=== PATIENT | female | born 1955 | race Caucasian/White ===

== ENCOUNTER → 2019-03-21 | Outpatient (CLI) | payer BC ==
--- NOTE | 2019-03-21 09:45 | Diagnostic Imaging Report ---
EXAMINATION: Lumbar spine at 9:30 a.m. INDICATION: Back pain. AP, lateral and spot lateral views were obtained. There are no prior studies available for comparison. The lateral view does show a grade I spondylolisthesis of L4 with respect to L5. There is also mild narrowing of the disc space at this level. The alignment of the other vertebral bodies is within normal limits and the other intervertebral disc spaces are fairly well maintained. There is no fracture or acute bony abnormality evident. There is no sign of a paraspinal mass. There is mild symmetrical sclerosis of the sacroiliac joints. IMPRESSION: 1. There is no evidence for an acute bony abnormality. 2. There is a grade I spondylolisthesis of L4 with respect to L5 and there is mild narrowing of the disc space at the L4-L5 level. If there is clinical concern regarding spinal stenosis or nerve root encroachment at this level, then MRI would be recommended for further study. Dictated by: Dictated on workstation # [id number]
== END ==
LOC: RAD FS 09:24
PROVIDERS: ATTEND Nurse Practitioner Family
DX: M43.16 Spondylolisthesis, lumbar region (principal); M48.061 Spinal stenosis, lumbar region without neurogenic claudication
CPT/HCPCS: 72100

== ENCOUNTER → 2019-06-24 | Outpatient (CLI) | payer BC ==
--- NOTE | 2019-06-24 11:09 | Diagnostic Imaging Report ---
PROCEDURE: US Bilateral lower extremity arterial. TECHNIQUE: Multiple real-time grayscale images are obtained through both lower extremity arterial systems with color Doppler imaging and color Doppler spectral analysis. INDICATION: Claudication. FINDINGS: There is complete occlusion of the superficial femoral arteries bilaterally. There is reconstitution of the popliteal arteries via collateral. Both posterior tibials appear to be patent at the ankle. The right dorsalis pedis is not visualized. IMPRESSION: Complete occlusion of both superficial femoral arteries with monophasic flow seen distally following reconstitution via collaterals. Additionally there is small vessel disease. Recommend clinical correlation and if warranted follow-up with formal angiography. Dictated by: Dictated on workstation # [id number]
== END ==
LOC: RAD 09:01
PROVIDERS: ATTEND Physician Assistant
DX: I70.203 Unspecified atherosclerosis of native arteries of extremities, bilateral legs (principal)
CPT/HCPCS: 93925

== ENCOUNTER → 2019-07-11 | Outpatient (CLI) | payer BC | LOC: CARD 10:31 | PROVIDERS: ATTEND Internal Medicine Cardiovascular Disease | DX: I73.9 Peripheral vascular disease, unspecified (principal); E78.2 Mixed hyperlipidemia; I10 Essential (primary) hypertension; I25.10 Atherosclerotic heart disease of native coronary artery without angina pectoris; Z72.0 Tobacco use | CPT/HCPCS: 93306 ==

== ENCOUNTER → 2019-07-14 | Outpatient (CLI) | payer BC ==
[~2019-07-14] VITALS: Ht 160 cm; Wt 67.0 kg
[~2019-07-14] MED LIST: ACLI400A3 IH; AMLO5TAB4 PO; ASPI-999 PO; CATHETER FLUSH 10 ML SYR IV PRN; CLON0.1T PO; CLOP75TA69 PO; LOSA1TAB26 PO; MULT-974 PO; NIAC500T24 PO; NICO-587 TD; OMG1KC PO; REGADENOSON 0.4 MG/5 ML SYR (LEXISCAN) IV ONE; RT-ALBUINH IH
--- NOTE | 2019-07-14 11:55 | STRESS TEST ---
DATE OF SERVICE: 07/14/2019 LEXISCAN MYOVIEW STRESS TEST REPORT REFERRING PHYSICIAN: Dr. Paredes Baseline heart rate is 72. Baseline blood pressure 181/82. Baseline EKG is sinus rhythm with no ischemic changes. In summary, the patient received 10.77 mCi of technetium-99 Myoview and the resting images were obtained. Then, the patient received 0.4 mg of Lexiscan followed by 29.8 mCi of technetium-99 Myoview. Throughout the test, there were no EKG changes. The resting and stress images were reviewed and compared in the short axis, horizontal long axis, and vertical long axis views. Review of the images showed good radiotracer uptake with no significant ischemia or infarction. SSS is 0. TID value is 1.11. On the gated images, the left ventricle appeared to be in normal size with normal contractility. Calculated ejection fraction is 81%. CONCLUSION: 1. The patient tolerated the Lexiscan well. 2. No ischemia or infarction on SPECT images. 3. Normal left ventricular size with normal contractility. Calculated ejection fraction is 81%. Job ID: [id number] DocumentID: [id number] Dictated Date: 07/14/2019 11:17:30 Furniture Restorer Date: 07/14/2019 11:55:12 Dictated By: YARA GREENWOOD MD
== END ==
LOC: CARD 06:37
PROVIDERS: ATTEND Internal Medicine Cardiovascular Disease
DX: I73.9 Peripheral vascular disease, unspecified (principal); E78.2 Mixed hyperlipidemia; I10 Essential (primary) hypertension; I25.119 Atherosclerotic heart disease of native coronary artery with unspecified angina pectoris; Z72.0 Tobacco use
CPT/HCPCS: 78452; 93017

== ENCOUNTER 2019-07-16 11:54 | Day surgery (SDC) | payer BC ==
[2019-07-16] VITALS (8 sets, daily range): BP systolic 101–207; BP diastolic 55–90
[~2019-07-16] VITALS: Ht 160 cm; Wt 60.7 kg
[2019-07-16] MEDS ORDERED: LIDOCAINE 1% INJ 20 ML 20 ML VIAL ONE ×2 (11:59→15:19)
[2019-07-16] MEDS ORDERED: NS IV 1000 ML 1,000 ML ONE (11:59)
[2019-07-16] MEDS ORDERED: HEParin (CATH LAB) 2,000 ML IV ONE (11:59)
--- NOTE | 2019-07-16 12:34 | Diagnostic Imaging Report ---
CHEST 1 VIEW, AP/PA ONLY Indication: Preop assessment for peripheral angiography. Comparison: None available. Findings: Calcified pulmonary granuloma within the left mid to lower lung zone. No focal airspace disease in the visualized lungs. Please note that the posterior lower lobes are poorly evaluated by portable radiography. No pleural effusion or pneumothorax. Normal cardiomediastinal silhouette. Impression: 1. No acute cardiopulmonary process by portable radiography. Dictated by: Dictated on workstation # [id number]
[2019-07-16 12:35] LABS: HEMOGLOBIN 15.2 G/DL (11.5-16.0); MEAN PLATELET VOLUME 9.9 FL (7.4-10.4); RED CELL DISTRIBUTION WIDTH 12.8 % (10.0-14.5); WHITE BLOOD COUNT 8.9 10^3/uL (4.3-11.0)
[2019-07-16] MEDS: NS IV 1000 ML 1,000 ML IV SCH ×3 (12:36→19:26)
[2019-07-16 12:43] LABS: BILIRUBIN,URINE NEGATIVE (NEGATIVE); CLARITY,URINE CLEAR; COLOR,URINE YELLOW; GLUCOSE, URINE (UA) NEGATIVE (NEGATIVE); KETONES,URINE NEGATIVE (NEGATIVE); LEUKOCYTE ESTERASE ,URINE NEGATIVE (NEGATIVE); NITRITE,URINE NEGATIVE (NEGATIVE); PH,URINE 6.5 (5-9); PROTEIN,URINE NEGATIVE (NEGATIVE)
[2019-07-16 12:47] LABS: INR 0.9 (0.8-1.4); PROTHROMBIN TIME PATIENT 12.3 SEC (12.2-14.7)
[2019-07-16 12:56] LABS: BACTERIA,URINE TRACE /HPF; WBC,URINE 0-2 /HPF
[2019-07-16 12:58] LABS: ALANINE AMINOTRANSFERASE 73 U/L (0-55); ALBUMIN 4.3 GM/DL (3.2-4.5); ALKALINE PHOSPHATASE 111 U/L (40-136); BILIRUBIN,TOTAL 0.6 MG/DL (0.1-1.0); BUN/CREATININE RATIO 14; CALCIUM 9.3 MG/DL (8.5-10.1); CARBON DIOXIDE 28 MMOL/L (21-32); CHLORIDE 95 MMOL/L (98-107); CREATININE SERUM 0.71 MG/DL (0.60-1.30); GFR ESTIMATED > 60; GLUCOSE 103 MG/DL (70-105); POTASSIUM 3.5 MMOL/L (3.6-5.0); SODIUM 131 MMOL/L (135-145); TOTAL PROTEIN 7.7 GM/DL (6.4-8.2); TRIGLYCERIDES 73 MG/DL (<150)
[2019-07-16 12:59] LABS: CHOLESTEROL 192 MG/DL (< 200); HDL CHOLESTEROL 88 MG/DL (40-60); VLDL CHOLESTEROL 15 MG/DL (5-40)
[2019-07-16] MEDS ORDERED: LOSA1TAB26 PO (13:13)
[2019-07-16] MEDS ORDERED: ACLI400A3 IH (13:13)
[2019-07-16] MEDS ORDERED: CLON0.1T PO (13:13)
[2019-07-16] MEDS ORDERED: MULT-974 PO (13:13)
[2019-07-16] MEDS ORDERED: NICO-587 TD (13:13)
[2019-07-16] MEDS ORDERED: CLOP75TA69 PO (13:13)
[2019-07-16] MEDS ORDERED: AMLO5TAB4 PO (13:13)
[2019-07-16] MEDS ORDERED: NIAC500T24 PO (13:13)
[2019-07-16] MEDS ORDERED: OMG1KC PO (13:13)
[2019-07-16] MEDS ORDERED: RT-ALBUINH IH (13:13)
[2019-07-16] MEDS ORDERED: ASPI-999 PO (13:13)
[2019-07-16] MEDS ORDERED: MIDAZOLAM 5 MG/5 ML (VERSED) VIAL ONE ×2 (13:59→15:16)
[2019-07-16] MEDS ORDERED: fentaNYL INJECTION 100 MCG/2 ML AMP ONE ×3 (13:59→18:33)
[2019-07-16] MEDS ORDERED: NITRO DRIP 25000 MCG/D5W 0 ML IV ONE (14:45)
[2019-07-16] MEDS ORDERED: HEParin 1000 UNIT/ML (10ML VIAL) FOR BOLUS ONE (14:45)
--- NOTE | 2019-07-16 15:41 | Cardiac Procedure Note-CS/ASA ---
Pre-Procedure Note Pre-Op Procedure Note H&P Reviewed The H&P was reviewed, patient examined and no changes noted. Date H&P Reviewed: Jul 16, 2019 Time H&P Reviewed: 15:41 Conscious Sedation Pre-Proced Time 15:41 ASA Score 3 For ASA 3 and 4: Consider anesthesia and medical clearance. Also, for patients with a history of failed moderate sedation consider anesthesia. Airway Lungs Heart ASA score ASA 1: a normal healthy patient ASA 2: a patient with a mild systemic disease (mid diabetes, controlled hypertension, obesity x ASA 3: a patient with a severe systemic disease that limits activity (angina, COPD, prior Myocardial infarction) ASA 4: a patient with an incapacitating disease that is a constant threat to life (CHF, renal failure) ASA 5: a moribund patient not expected to survive 24 hrs. (ruptured aneurysm) ASA 6: a declared brain- patient whose organs are being harvested. For emergent operations, add the letter E after the classification Mallampati Classification Grade 3 Sedation Plan Analgesia, Amnesia, Plan communicated to team members, Discussed options with patient/fam, Discussed risks with patient/fam The patient is an appropriate candidate to undergo the planned procedure, sedation, and anesthesia. The patient immediately re-assessed prior to indication. YARA GREENWOOD MD Jul 16, 2019 15:41
[2019-07-16] MEDS ORDERED: PATIENT MAY USE OWN MEDS, ALL PO SCH (15:45)
--- NOTE | 2019-07-16 15:48 | Peripheral Report ---
Peripheral Report Physician (s)/Skid Man (s) Physician YARA GREENWOOD MD Pre-Procedure Diagnosis Pre-Procedure Diagnosis: Claudication, peripheral arterial disease Post-Procedure Note Procedure Start Date: Jul 16, 2019 Name of Procedure: Abdominal aortogram Bilateral runoff Second order Additional imaging Findings/Procedure Note PROCEDURE NOTE: 64-year-old lady with abnormal PAOLA, abnormal ultrasound, claudication, scheduled for peripheral angiogram After explaining the procedure to the patient, all pros and cons were explained, all questions were answered. The patient signed the consent and then she was placed on the cardiac catheterization laboratory. The patient was placed on the cardiac catheterization laboratory. Groin was prepped SL fashion local anesthesia was used. Sheath placed in the right femoral artery, runoff to the right leg was done, then using Tobin catheter I advanced to the left and advanced to straight catheter to the common iliac artery runoff to the left leg was done, patient was given 5000 units of heparin, sheath was exchanged into long 6 Irish sheath, multiple attempts to cross the total occlusion of the SFA has failed. I attempted pedal access with the posterior tibial artery, I was unable to intubate the posterior tibial artery, had a venous access. Sheath was exchanged back into a short 6 Irish sheath, a pigtail catheter advanced to the abdominal aorta and angiogram was done. At the end of the procedure sheath was sutured in place FINDINGS: Abdominal aortogram: Mild other scorer disease, had a consultation of the bifurcation. No aneurysm. Left leg: Total occlusion at the ostium of the left SFA without success and reestablishing flow, reconstruction by collaterals at the popliteal artery. Failed attempt for intervention Right leg: Total occlusion at the ostium of the right SFA, heavy atherosclerotic plaque with reconstruction by collaterals at the popliteal artery CONCLUSIONS: 1. Severe peripheral arterial disease with total occlusion of bilateral SFA at the ostium, getting collaterals filling the popliteal artery 2. Failed attempt for intervention on the left SFA 3. Heavily calcified abdominal aorta and iliac arteries DISCUSSION AND RECOMMENDATIONS: Maximize medical therapy, referral for high risk intervention. Anesthesia Type: Conscious Sedation Estimated blood loss (mL): 35 ml Contrast Amount: 95 ml Total Radiation Dose: 150 mGy Post-Procedure Diagnosis Post-operative diagnosis: Claudication Peripheral arterial disease Hypertension Hyperlipidemia YARA GREENWOOD MD Jul 16, 2019 15:48
[2019-07-16] MEDS ORDERED: NON-FORMULARY MEDICATION 1 EA EA (Niacinamide (Niacin) 500 MG) PO SCH (16:00)
[2019-07-16] MEDS ORDERED: ATROPINE INJECTION 1 MG/10 ML SYR (ABBOTT) ONE (18:30)
[2019-07-16] MEDS: RT-ALBUTEROL SULF 2.5 MG/3 ML PRE-MIX VIAL IH SCH ×2 (19:17→21:41)
[2019-07-16] MEDS: cloNIDine 0.1 MG (CATAPRES) TAB PO SCH (22:10)
[2019-07-17] VITALS: BP 151/67
[2019-07-17] MEDS: NS IV 1000 ML 1,000 ML IV SCH (02:02)
[2019-07-17] MEDS: RT-ALBUTEROL SULF 2.5 MG/3 ML PRE-MIX VIAL IH SCH ×3 (02:31→11:34)
[2019-07-17 03:25] LABS: HEMOGLOBIN 13.1 G/DL (11.5-16.0); MEAN PLATELET VOLUME 10.4 FL (7.4-10.4); RED CELL DISTRIBUTION WIDTH 12.7 % (10.0-14.5); WHITE BLOOD COUNT 8.6 10^3/uL (4.3-11.0)
[2019-07-17 03:47] LABS: BUN/CREATININE RATIO 15; CALCIUM 8.7 MG/DL (8.5-10.1); CARBON DIOXIDE 24 MMOL/L (21-32); CHLORIDE 101 MMOL/L (98-107); CREATININE SERUM 0.65 MG/DL (0.60-1.30); GFR ESTIMATED > 60; GLUCOSE 120 MG/DL (70-105); POTASSIUM 2.9 MMOL/L (3.6-5.0); SODIUM 136 MMOL/L (135-145)
[2019-07-17 04:00] VITALS: BP 139/62
[2019-07-17] MEDS ORDERED: MULTIVIT W/MINERALS TAB (THERAGRAN M) PO SCH (07:00)
[2019-07-17 08:00] VITALS: BP 139/72
[2019-07-17] MEDS ORDERED: KCL 20 MEQ TAB (K-DUR) PO ONE (08:00)
--- NOTE | 2019-07-17 08:15 | Discharge Inst-Post CATH ---
Discharge Inst-CATH/EP Problems Reviewed?: Yes Post Cardiac Cath/EP D/C Inst Follow Up/Plan Appointment with Dr. Hammond's office in 2-4 weeks <b>CARDIAC CATH/EP PROCEDURE DISCHARGE INSTRUCTIONS</b> ACTIVITY * Go Home directly and rest. * Limit activity of the leg (or wrist if it was used) for 7 days including aerobics, swimming, jogging, bicycling, etc. * Restrict stair-climbing for 7 days if possible, if not, climb up with your non-cath leg, then bring together on the same step. * Avoid lifting, pushing, pulling or excessive movement of the affected extremity for 7 days. * Customary sexual activity may be resumed after 2 days-use caution not to use a position that strains or causes pain to the affected extremity. * No driving for 24 hours. * NO SMOKING. * Avoid straining for bowel movements for 7 days. * Gentle walking on level ground is allowed. * Returning to work will depend on the type of procedure and the results. Your doctor will discuss this with you. CALL YOUR DOCTOR FOR ANY OF THE FOLLOWING: *If bleeding from the puncture site occurs- Apply gentle pressure to site with clean cloth and call your doctor or EMS. * If a knot or lump forms under the skin, increases in size, or causes pain. * If bruising appears to be worsening or moving further down your leg instead of disappearing. * Temperature above 101 F. CARE OF YOUR GROIN INCISION; * Bruising or purple discoloration of the skin near the puncture site is common. * You may shower only, no bathtub bathing for 5 days. Be careful to avoid slipping as your leg may feel stiff. * If a closure device was used on your femoral artery, please see the attached guide regarding care of the device and your leg. * Leave dressing on FOR 24 hours. CARE OF YOUR WRIST INCISION; * Bruising or purple discoloration of the skin near the puncture site is common. * You may shower. * DO NOT submerge wrist. * Leave dressing on FOR 24 hours. YARA HAMMOND MD Jul 17, 2019 08:15
--- NOTE | 2019-07-17 08:19 | Cardiology Progress Note ---
Subjective Date Seen by Provider: Jul 17, 2019 Time Seen by Provider: 08:17 Subjective/Events-last exam Patient is laying down in bed, feeling well. Groin is healing well Review of Systems General: No Chills, No Night Sweats, No Fatigue, No Malaise, No Appetite, No Other HEENT: No Head Aches, No Visual Changes, No Eye Pain, No Ear Pain, No Dysphasia, No Sinus Congestion, No Post Nasal Drip, No Sore Throat, No Other Pulmonary: No Dyspnea, No Cough, No Pleuritic Chest Pain, No Other Cardiovascular: No: Chest Pain, Palpitations, Orthopnea, Paroxysmal Noc. Dyspnea, Edema, Lt Headedness, Other Objective-Cardiology Exam Last Set of Vital Signs Vital Signs 07/17/19 07/17/19 04:00 07:45 Temp 36.4 Pulse 94 Resp 18 B/P (MAP) 139/62 (87) Pulse Ox 98 O2 Delivery Room Air Capillary Refill : Less Than 3 Seconds I&O Intake and Output 07/17/19 00:00 Intake Total 1800 ml Balance 1800 ml Intake IV Total 1800 ml General: Alert, Oriented X3, Cooperative HEENT: Atraumatic, PERRLA Neck: Supple, No JVD, No Thyromegaly Lungs: Clear to Auscultation, Normal Air Movement Heart: Regular Rate, Normal S1, Normal S2, No Murmurs Abdomen: Normal Bowel Sounds, Soft, No Tenderness, No Hepatosplenomegaly, No Masses Extremities: No Clubbing, No Cyanosis, No Edema, Normal Pulses, No Tenderness/Swelling Skin: No Rashes, No Breakdown, No Significant Lesion Neuro: Normal Gait, Normal Speech, Strength at 5/5 X4 Ext, Normal Tone, Sensation Intact Psych/Mental Status: Mental Status NL, Mood NL Results Lab Laboratory Tests 07/16/19 12:26 07/17/19 02:30 A/P-Cardiology Admission Diagnosis Claudication Peripheral arterial disease Hypertension Hyperlipidemia Assessment/Plan Extensive peripheral arterial disease, claudication, we will arrange for high risk intervention incidental Hypertension, restart home medication monitor blood pressure Hyperlipidemia, continue on statin Tobaccoism educated on smoking cessation YARA GREENWOOD MD Jul 17, 2019 08:19
[2019-07-17] MEDS ORDERED: UMECLIDINIUM BROMIDE (INCRUSE ELLIPTA) 7'S IH SCH (08:31)
[2019-07-17] MEDS ORDERED: NICOTINE PATCH REMOVAL TP SCH (08:59)
[2019-07-17] MEDS ORDERED: NICOTINE 14 MG (NICODERM) PATCH TD SCH (09:00)
[2019-07-17] MEDS ORDERED: OMEGA 3 (FISH OIL) 1000 MG CAP PO SCH (09:00)
[2019-07-17] MEDS ORDERED: CLOPIDOGREL 75 MG (PLAVIX) TABLET PO SCH (09:00)
[2019-07-17] MEDS ORDERED: amLODIPine 5 MG (NORVASC) TAB PO SCH (09:00)
[2019-07-17] MEDS ORDERED: ASPIRIN 81 MG CHEW (CHILDREN'S ASA) PO SCH (09:00)
[2019-07-17] MEDS ORDERED: HYDROCHLOROTHIAZIDE 12.5 MG (HCTZ) CAP PO SCH (09:00)
[2019-07-17] MEDS ORDERED: LOSARTAN 100 MG (COZAAR) TABLET PO SCH (09:00)
--- NOTE | 2019-07-17 09:30 | NUR ---
PT REFUSED MEDICATIONS OTHER THAN POTASSIUM. PT STATED THAT SHE HAD ALL OTHERS AT HOME AND WOULD TAKE THEM WHEN SHE GOT HOME
[2019-07-17] MEDS: cloNIDine 0.1 MG (CATAPRES) TAB PO SCH (11:33)
== END 2019-07-17 09:35 | disposition home or self-care (01) ==
LOC: CATH 11:54 → ICU 16:49 → CATH 07-17 09:35
PROVIDERS: ATTEND Internal Medicine Cardiovascular Disease
DX: I70.92 Chronic total occlusion of artery of the extremities (principal); I70.0 Atherosclerosis of aorta; I70.8 Atherosclerosis of other arteries; I77.1 Stricture of artery; I25.10 Atherosclerotic heart disease of native coronary artery without angina pectoris; I10 Essential (primary) hypertension; E78.2 Mixed hyperlipidemia; F17.210 Nicotine dependence, cigarettes, uncomplicated; Z79.899 Other long term (current) drug therapy; Z80.9 Family history of malignant neoplasm, unspecified
CPT/HCPCS: 36246; 36248; 36415; 71045; 75630; 80048; 80053; 80061; 81000; 85027; 85610; 85730; 87081; 94640

== ENCOUNTER 2020-09-01 10:00 | Outpatient (RCR) | payer BC ==
[~2020-09-01 10:00] MED LIST changes: -CATHETER FLUSH 10 ML SYR IV PRN; +CLN.1T PO; -CLON0.1T PO; -REGADENOSON 0.4 MG/5 ML SYR (LEXISCAN) IV ONE
[2020-09-01 10:28] LABS: ABSOLUTE RETIC # 62 10e9/uL (24-90); BASOPHILS # (AUTO) 0.1 10^3/uL (0.0-0.1); BASOPHILS % (AUTO) 2 % (0-10); EOSINOPHILS # (AUTO) 0.1 10^3/uL (0.0-0.3); EOSINOPHILS % (AUTO) 1 % (0-10); HEMATOCRIT 39 % (35-52); HEMOGLOBIN 12.9 g/dL (11.5-16.0); LYMPHOCYTES # (AUTO) 1.7 10^3/uL (1.0-4.0); LYMPHOCYTES % (AUTO) 19 % (12-44); MEAN CORPUSCULAR HEMOGLOBIN 30 pg (25-34); MEAN CORPUSCULAR HGB CONC 33 g/dL (32-36); MEAN CORPUSCULAR VOLUME 89 fL (80-99); MEAN PLATELET VOLUME 9.1 fL (9.0-12.2); MONOCYTES # (AUTO) 0.9 10^3/uL (0.0-1.0); MONOCYTES % (AUTO) 10 % (0-12); NEUTROPHILS # (AUTO) 6.1 10^3/uL (1.8-7.8); NEUTROPHILS % (AUTO) 68 % (42-75); PLATELET COUNT 309 10^3/uL (130-400); RETICULOCYTE % 1.43 % (0.50-2.40)
[2020-09-01 10:53] LABS: ALANINE AMINOTRANSFERASE 62 U/L (0-55); ALBUMIN 4.3 GM/DL (3.2-4.5); ALKALINE PHOSPHATASE 117 U/L (40-136); BILIRUBIN,TOTAL 0.3 MG/DL (0.1-1.0); BUN/CREATININE RATIO 13; CALCIUM 9.3 MG/DL (8.5-10.1); CARBON DIOXIDE 23 MMOL/L (21-32); CHLORIDE 90 MMOL/L (98-107); CREATININE SERUM 0.69 MG/DL (0.60-1.30); GFR ESTIMATED > 60; GLUCOSE 102 MG/DL (70-105); POTASSIUM 3.4 MMOL/L (3.6-5.0); SODIUM 126 MMOL/L (135-145); TOTAL PROTEIN 7.3 GM/DL (6.4-8.2)
[2020-10-19] MEDS ORDERED: ATOR10TA66 PO (14:37)
[2020-10-19] MEDS ORDERED: FERR-84 PO (14:37)
[2020-10-19] MEDS ORDERED: OMEP40CA6 PO (14:37)
[2020-10-19] MEDS ORDERED: TRZ50T PO (14:37)
[2020-10-19] MEDS ORDERED: TIOT18CA2 IH (14:37)
[2020-10-19] MEDS ORDERED: POTA10CA43 PO (14:37)
[2020-10-21] MEDS ORDERED: ACHD5005 PO (08:18)
== END 2020-11-30 | disposition home or self-care (01) ==
LOC: ONC 10:00
PROVIDERS: ATTEND Internal Medicine Hematology & Oncology
DX: D50.0 Iron deficiency anemia secondary to blood loss (chronic) (principal); I73.9 Peripheral vascular disease, unspecified; I10 Essential (primary) hypertension; E78.2 Mixed hyperlipidemia
CPT/HCPCS: 80053; 82728; 83540; 83550; 85025; 85045; G0463; 99214

== ENCOUNTER 2020-10-19 05:34 | Outpatient (RCR) | payer BC ==
[~2020-10-19] VITALS: Ht 160 cm; Wt 59.0 kg
[2020-10-19] MEDS ORDERED: TIOT18CA2 IH (14:37)
[2020-10-19] MEDS ORDERED: FERR-84 PO (14:37)
[2020-10-19] MEDS ORDERED: TRZ50T PO (14:37)
[2020-10-19] MEDS ORDERED: ATOR10TA66 PO (14:37)
[2020-10-19] MEDS ORDERED: OMEP40CA27 PO (14:37)
[2020-10-19] MEDS ORDERED: POTA10CA43 PO (14:37)
== END 2020-10-19 14:54 | disposition home or self-care (01) ==
LOC: PREOP 05:34 → EDSTATUS 10:15 → PREOP 14:54
PROVIDERS: ATTEND Surgery
DX: Z01.818 Encounter for other preprocedural examination (principal)

== ENCOUNTER 2020-10-21 06:50 | Emergency (ER) | payer BC ==
[~2020-10-21] VITALS: Ht 160 cm; Wt 59.0 kg
[~2020-10-21 06:50] MED LIST changes: +ATOR10TA66 PO; +FERR-84 PO; +OMEP40CA6 PO; +POTA10CA43 PO; +TIOT18CA2 IH; +TRZ50T PO
--- NOTE | 2020-10-21 07:26 | ED Lower Extremity ---
General Chief Complaint: Lower Extremity Stated Complaint: FELL,RT ANKLE,LT LEG PAIN Nursing Triage Note: Patient presents to the ED with c/o of left hip/thigh pain and right ankle swelling and pain. She states she got up last night and when she turned she lost her balance causing her to fall to the ground. She is unsure of how she landed but since then she has had increased pain to her left thigh and right ankle. She reports she is unable to bear weight on her left leg and has increased pain with range of motion. Nursing Sepsis Screen: No Definite Risk History of Present Illness Date Seen by Provider: Oct 21, 2020 Time Seen by Provider: 07:00 Initial Comments 65-year-old female presents after fall that occurred last night in her bedroom. States she fell to the floor without hitting any furniture or object landing on her left side. Complains of pain in her left thigh, worse with movement and unable to bear weight as well as pain in her right ankle and right foot. [place] any head, neck or back pain/injury. Allergies and Home Medications Allergies Coded Allergies: No Known Drug Allergies (Unverified , 07/16/19) Home Medications Albuterol Sulfate 1 Puff Puff, 2 PUFF IH Q4H, (Reported) 1 PUFF = 90 MCG Amlodipine Besylate 5 Mg Tablet, 5 MG PO DAILY, (Reported) Aspirin 81 Mg Tab.chew, 81 MG PO DAILY, (Reported) Atorvastatin Calcium 10 Mg Tablet, 10 MG PO HS, (Reported) Clopidogrel Bisulfate 75 Mg Tablet, 75 MG PO DAILY, (Reported) Ferrous Sulfate 325 Mg Tablet, 325 MG PO DAILY, (Reported) Losartan/Hydrochlorothiazide 1 Each Tablet, 1 EACH PO DAILY, (Reported) Multivitamin 1 Each Tablet, 1 EACH PO DAILY, (Reported) [place] 3 Polyunsat Fatty Acids 1,000 Mg Cap, 1,000 MG PO DAILY, (Reported) Omeprazole 40 Mg Capsule.dr, 40 MG PO DAILY, (Reported) Potassium Chloride 10 Meq Capsule.er, 10 MEQ PO DAILY, (Reported) Tiotropium [place] 1 Inh Aerp, 1 INH IH DAILY, (Reported) Trazodone HCl 50 Mg Tablet, 50 MG PO HS, (Reported) Patient Home Medication List Home Medication List Reviewed: Yes Review of Systems Constitutional: No fever, No malaise, No weakness EENTM: no symptoms reported Respiratory: no symptoms reported Cardiovascular: no symptoms reported Gastrointestinal: no symptoms reported Musculoskeletal: see HPI; No back pain; joint pain, muscle pain; No muscle weakness, No neck pain Skin: No change in color, No lesions, No rash Psychiatric/Neurological: Denies Numbness, Denies Paresthesia, Denies Tingling, Denies Tremors, Denies Weakness Past Uvbsadb-Znenya-Nftacn Hx Past Med/Social Hx: Reviewed Nursing Past Med/Soc Hx Patient Social History Alcohol Use: Regular Use Number of Drinks Today: 0 Alcohol Beverage of Choice: Whiskey Smoking Status: Current Everyday Smoker Type Used: Cigarettes 2nd Hand Smoke Exposure: No Recent Infectious Disease Expo: No Recent Hopitalizations: No Immunizations Up To Date Date of Influenza Vaccine: Feb 14, 2019 Past Medical History Surgeries: Yes Appendectomy, Hysterectomy, Orthopedic Respiratory: Yes COPD Cardiac: Yes (STENTS IN LEGS) High Cholesterol, Hypertension Neurological: No Genitourinary: No Gastrointestinal: No Musculoskeletal: No Endocrine: No HEENT: No Cancer: No Psychosocial: No Integumentary: No Blood Disorders: Yes (Anemia) Adverse Reaction/Blood Tranf: No Physical Exam Vital Signs Vital Signs - First Documented 10/21/20 07:06 Temp 36.7 Pulse 99 Resp 16 B/P (MAP) 184/67 (106) Pulse Ox 98 O2 Delivery Room Air Capillary Refill : Less Than 3 Seconds Height, Weight, BMI Height: '" Weight: lbs. oz. kg; 23.00 BMI Method: General Appearance: WD/WN, no apparent distress Back: normal inspection, no CVA tenderness, no vertebral tenderness Hips: left hip normal inspection, left hip normal range of motion, left hip pain, left hip soft tissue tenderness Legs: bilateral leg non-tender, bilateral leg normal inspection, bilateral leg normal range of motion, bilateral leg no evidence of injury Knees: bilateral knee non-tender, bilateral knee normal inspection, bilateral knee normal range of motion, bilateral knee no evidence of injury Ankles: right ankle bone tenderness, right ankle pain, right ankle soft tissue tenderness, right ankle swelling Feet: right foot bone tenderness, right foot ecchymosis, right foot pain, right foot soft tissue tenderness Neurologic/Tendon: normal motor functions, normal tendon functions Neurologic/Psychiatric: no motor/sensory deficits, alert, normal mood/affect, oriented x 3 Skin: normal color, warm/dry Patient's left hip held in flexion with knee at 90 degrees. Internal and external rotation of the hip without pain or discomfort. Moderate pain of the left thigh with extension of the hip. Generalized tenderness of the anterior thigh and hip adductors without localized bony tenderness of the femur. Minimal tenderness of the left hip joint. Progress/Results/Core Measures Results/Orders My Orders Orders - LETHA THAYER DO Pelvis With Left Hip 2-3 View (10/21/20 07:26) Foot 3 View Right (10/21/20 07:26) Ankle 3 View Right (10/21/20 07:26) Vital Signs/I&O 10/21/20 07:06 Temp 36.7 Pulse 99 Resp 16 B/P (MAP) 184/67 (106) Pulse Ox 98 O2 Delivery Room Air Blood Pressure Mean: 106 Diagnostic Imaging Diagonstic Imaging: Xray Comments FINDINGS: Single view of the pelvis and 2 views left hip demonstrate nondisplaced fractures of the left inferior and superior pubic rami. Otherwise, pelvis and bilateral hips are intact. Atherosclerotic disease is present. Multiple arterial stents are present. IMPRESSION: Nondisplaced left inferior superior pubic ramus fractures. Dictated on workstation # [id number] Dict: 10/21/20747 Trans: 10/21/[address] [place] [address] [id number] Interpreted by: PADMA LEES Electronically signed by: FINDINGS: 3 views of the right foot demonstrate nondisplaced fracture of the proximal 5th metatarsal. No intra-articular involvement is seen. No additional fracture is present. Degenerative joint disease is noted. There is no foreign body. IMPRESSION: Nondisplaced proximal 5th metatarsal fracture Dictated on workstation # [id number] Dict: 10/21/20747 Trans: 10/21/[address] [place] [address] [id number] Interpreted by: PADMA LEES Electronically signed by: FINDINGS: 3 views of the right ankle demonstrate intact ankle mortise. There is a nondisplaced proximal 5th metatarsal fracture. Atherosclerotic disease present. There is no foreign body. IMPRESSION: No ankle fracture identified Dictated on workstation # [id number] Dict: 10/21/20 0749 Trans: 10/21/20 0752 [facility] [id number] Interpreted by: PADMA LEES Electronically signed by: Departure Communication (Admissions) Time/Spoke to Consulting Phy: 08:[address] Neri to ask about management. Advised admission for pain control if needed vs. HOME w a walker and outpt PT Impression Primary Impression: Fracture of multiple pubic rami Qualified Codes: S32.592A - Other specified fracture of left pubis, initial encounter for closed fracture Additional Impression: Metatarsal fracture Qualified Codes: S92.354A - Nondisplaced fracture of fifth metatarsal bone, right foot, initial encounter for closed fracture Disposition: 01 HOME, SELF-CARE Condition: Improved Departure-Patient Inst. Decision time for Depature: 08:15 Referrals: GLADYS SANTO MD (PCP/Family) Primary Care Physician Patient Instructions: Foot Fracture (DC), Pelvic Fracture (DC) Add. Discharge Instructions: Call Dr Santo to arrange for a follow up visit tomorrow. You will need physical therapy. All discharge instructions reviewed with patient and/or family. Voiced understanding. Scripts Hydrocodone/Acetaminophen (Hydrocodone-Acetamin 5-325 mg) 1 Each Tablet 1 EACH PO Q4H for Abdominal Pain, #30 TAB Prov: LETHA THAYER DO 10/21/20 LETHA THAYER DO Oct 21, 2020 07:26
--- NOTE | 2020-10-21 07:52 | Diagnostic Imaging Report ---
INDICATION: Ankle pain and swelling COMPARISON: None FINDINGS: 3 views of the right ankle demonstrate intact ankle mortise. There is a nondisplaced proximal 5th metatarsal fracture. Atherosclerotic disease present. There is no foreign body. IMPRESSION: No ankle fracture identified Dictated by: Dictated on workstation # [id number]
--- NOTE | 2020-10-21 07:55 | Diagnostic Imaging Report ---
INDICATION: Right foot pain COMPARISON: None FINDINGS: 3 views of the right foot demonstrate nondisplaced fracture of the proximal 5th metatarsal. No intra-articular involvement is seen. No additional fracture is present. Degenerative joint disease is noted. There is no foreign body. IMPRESSION: Nondisplaced proximal 5th metatarsal fracture Dictated by: Dictated on workstation # [id number]
--- NOTE | 2020-10-21 07:56 | Diagnostic Imaging Report ---
INDICATION: Fall, hip injury. COMPARISON: None. FINDINGS: Single view of the pelvis and 2 views left hip demonstrate nondisplaced fractures of the left inferior and superior pubic rami. Otherwise, pelvis and bilateral hips are intact. Atherosclerotic disease is present. Multiple arterial stents are present. IMPRESSION: Nondisplaced left inferior superior pubic ramus fractures. Dictated by: Dictated on workstation # [id number]
[2020-10-21] MEDS ORDERED: HYDROcodone/APAP 5 MG/325 MG (LORTAB) TAB PO ONE (08:15)
[2020-10-21] MEDS ORDERED: ACHD5005 PO (08:18)
[2020-10-21 08:36] VITALS: BP 172/64
== END 2020-10-21 08:32 | disposition home or self-care (01) ==
LOC: EDUNIT# 06:50 → ER FS 06:51
DX: S32.592A Other specified fracture of left pubis, initial encounter for closed fracture (principal); S92.354A Nondisplaced fracture of fifth metatarsal bone, right foot, initial encounter for closed fracture; J44.9 Chronic obstructive pulmonary disease, unspecified; I10 Essential (primary) hypertension; E78.00 Pure hypercholesterolemia, unspecified; F17.210 Nicotine dependence, cigarettes, uncomplicated; Z79.82 Long term (current) use of aspirin; Z79.899 Other long term (current) drug therapy; Z79.01 Long term (current) use of anticoagulants; W13.3XXA Fall through floor, initial encounter
CPT/HCPCS: 73502; 73610; 73630

== ENCOUNTER → 2020-11-23 | Outpatient (CLI) | payer BC ==
[~2020-11-23] MED LIST changes: +ACHD5005 PO
--- NOTE | 2020-11-23 11:32 | Diagnostic Imaging Report ---
INDICATION: Follow-up of right fifth metatarsal fracture. FINDINGS: Nondisplaced fracture along the base of the fifth metatarsal is unchanged in position. No significant bony callus has developed. Moderate arthritic changes noted especially along the first MP joint. IMPRESSION: Nondisplaced proximal fifth metatarsal fracture without significant change since previous exam. Dictated by: Dictated on workstation # [id number]
--- NOTE | 2020-11-23 11:33 | Diagnostic Imaging Report ---
INDICATION: Fall with known pelvic fracture. COMPARISON: 10/21/2020. FINDINGS: The nondisplaced fractures along the superior and inferior pubic rami on the left are again demonstrated. There has been some early callus formation though no solid bony bridging is present. The SI joints and pubic symphysis remain in good alignment. Femoral heads show normal articulation. IMPRESSION: Early healing noted of nondisplaced left pubic rami fracture. Dictated by: Dictated on workstation # [id number]
== END ==
LOC: RAD FS 09:57
PROVIDERS: ATTEND Nurse Practitioner
DX: S32.512A Fracture of superior rim of left pubis, initial encounter for closed fracture (principal); S32.592A Other specified fracture of left pubis, initial encounter for closed fracture; S92.354A Nondisplaced fracture of fifth metatarsal bone, right foot, initial encounter for closed fracture; W19.XXXA Unspecified fall, initial encounter
CPT/HCPCS: 72170; 73630

== ENCOUNTER → 2020-12-23 | Outpatient (CLI) | payer BC ==
--- NOTE | 2020-12-23 10:50 | Diagnostic Imaging Report ---
EXAMINATION: Right foot 3 views. HISTORY: Fracture. COMPARISON: 11/23/2020 FINDINGS: There is bridging bone present across the right fifth metatarsal base fracture. There is severe right first metatarsophalangeal joint osteoarthritis. No other fracture is seen. Small heel spur is present. IMPRESSION: 1. Bridging bone across the right fifth metatarsal base fracture. 2. Severe right first metatarsophalangeal joint osteoarthritis. Dictated by: Dictated on workstation # [id number]
--- NOTE | 2020-12-23 10:51 | Diagnostic Imaging Report ---
EXAMINATION: Pelvis 1 or 2 views. HISTORY: Fracture. COMPARISON: 11/23/2020 FINDINGS: There are vascular stents projecting over both superficial femoral arteries. There is unchanged alignment of healing left superior and inferior pubic rami fractures. No new fracture is seen. There is a left common iliac artery stent and a right external iliac artery stent. IMPRESSION: 1. Unchanged alignment of healing left superior and inferior pubic rami fractures. Dictated by: Dictated on workstation # [id number]
== END ==
LOC: RAD FS 10:21
PROVIDERS: ATTEND Nurse Practitioner
DX: S32.512D Fracture of superior rim of left pubis, subsequent encounter for fracture with routine healing (principal); S92.354D Nondisplaced fracture of fifth metatarsal bone, right foot, subsequent encounter for fracture with routine healing; M19.071 Primary osteoarthritis, right ankle and foot; X58.XXXD Exposure to other specified factors, subsequent encounter
CPT/HCPCS: 72170; 73630

== ENCOUNTER 2021-01-04 05:34 | Outpatient (CLI) | payer BC ==
[~2021-01-04] VITALS: Ht 160 cm; Wt 59.0 kg
[~2021-01-04 05:34] MED LIST changes: -AMLO-251 PO; -CHOL500049 PO
[2021-01-04] MEDS ORDERED: CHOL500049 PO (15:46)
[2021-01-04] MEDS ORDERED: AMLO-251 PO (15:46)
== END 2021-01-05 12:31 | disposition home or self-care (01) ==
LOC: PREOP 05:34
PROVIDERS: ATTEND Surgery
DX: Z01.818 Encounter for other preprocedural examination (principal)

== ENCOUNTER → 2021-01-04 | Outpatient (CLI) | payer BC ==
[~2021-01-04] MED LIST changes: +AMLO-251 PO; +CHOL500049 PO
--- NOTE | 2021-01-04 10:43 | Diagnostic Imaging Report ---
INDICATION: Postmenopausal state COMPARISON: None available FINDINGS: AP Spine L1-L4: [BMD (g/cm2): 0.795] [T-Score: -3.4] [Z-Score: -1.5] [BMD Previous: NA] [BMD % Change: NA] LT Hip Neck: [BMD (g/cm2): 0.662] [T-Score: -2.7] [Z-Score: -1.0] LT Hip Total: [BMD (g/cm2):0.654] [T-Score:-2.8] [Z-Score: -1.4] [BMD Previous: NA] [BMD % Change: NA] RT Hip Neck: [BMD (g/cm2):0.658] [T-Score:-2.7] [Z-Score:-1.1] RT Hip Total: [BMD (g/cm2):0.636] [T-score:-2.9] [Z-Score:-1.5] [BMD Previous:NA] [BMD % Change:NA] *Indicates significant change from prior examination based on 95% confidence level. World Health Organization criteria for BMD interpretation classify patients as Normal (T-score at or above -1.0), Osteopenic (T-score between -1.0 and -2.5) or Osteoporotic (T-score at or below -2.5). LIMITATIONS AND MODIFICATION: None. IMPRESSION: 1. Osteoporosis. 2. Baseline examination. 3. See below National Osteoporosis Foundation guidelines on when to potentially initiate pharmacologic therapy. Based on the National Osteoporosis Foundation Guidelines, pharmacologic treatment should be initiated in any of the following, unless clinical conditions suggest otherwise: * Any patient with prior fragility fracture of the hip or vertebrae. A spine fracture indicates 5X risk for subsequent spine fracture and 2X risk for subsequent hip fracture. * Osteoporosis (T-score <-2.5). * Postmenopausal women and men age 50 and older with low bone mass/osteopenia (T-score between -1.0 and -2.5) by DXA and 10-year major osteoporotic fracture greater than 20% or a 10-year probability of hip fracture greater than 3%. These fracture risks are supplied above in the FRAX score, if applicable. * Clinician judgement and/or patient preferences may indicate treatment for people with 10-year fracture probabilities above or below these levels. Dictated by: Dictated on workstation # [id number]
--- NOTE | 2021-01-04 14:12 | Diagnostic Imaging Report ---
INDICATION: Abnormal MRI. Patient was administered 26.9 mCi technetium 99m MDP intravenously and whole-body imaging was performed after 3 hour delay. No prior MRI study is available for comparison. There is normal uptake of activity by the axial and appendicular skeleton. There is uptake by the kidneys with excretion to urinary bladder. There is some mild degenerative uptake bilateral shoulders. There is a small focus of uptake involving lower right anterior rib, indeterminate. There is also some uptake involving the left hemipelvis in the region of the left superior and inferior pubic rami. Fractures at this location cannot be excluded. There is uptake in bilateral feet and ankles which may be degenerative. IMPRESSION: Degenerative uptake, as described. There may be posttraumatic changes in the left hemipelvis involving the left superior and inferior pubic rami. Correlation with plain films would be useful. There is indeterminate minimal uptake involving the lower right anterior rib. Dictated by: Dictated on workstation # [id number]
== END ==
LOC: RAD 10:30
PROVIDERS: ATTEND Family Medicine
DX: M81.0 Age-related osteoporosis without current pathological fracture (principal); R93.89 Abnormal findings on diagnostic imaging of other specified body structures; Z78.0 Asymptomatic menopausal state
CPT/HCPCS: 77080; 78306; A9503

== ENCOUNTER 2021-01-12 05:14 | Inpatient (IN) | payer BC ==
[~2021-01-12] VITALS: Ht 160 cm; Wt 54.4 kg
[2021-01-12] VITALS (8 sets, daily range): BP systolic 151–181; BP diastolic 63–84
[~2021-01-12 05:14] MED LIST changes: +ALEN70TA80 PO; +AMLO-251 PO; +CHOL500049 PO; +PANT40TA2 PO
[2021-01-12] MEDS ORDERED: NS IV 1000 ML 1,000 ML IV STA ×2 (05:26→06:12)
[2021-01-12] MEDS ORDERED: fentaNYL INJ 100 MCG/2 ML AMP IVP STA ×2 (05:26→06:12)
[2021-01-12] MEDS ORDERED: ONDANSETRON 4 MG/2 ML (SDV) Z0FRAN IVP STA (05:26)
--- NOTE | 2021-01-12 05:35 | ED GI ---
General Stated Complaint: RT ABDOMINAL PAIN Source of Information: Patient, Old Records History of Present Illness Date Seen by Provider: Jan 12, 2021 Time Seen by Provider: 05:17 Initial Comments 65 yo female presenting with complaint of diffuse abdominal pain, worse on right side. She states she has had this pain since getting released from [facility] yesterday after EGD and Colonoscopy. She felt more bloated after eating a salad last night. She was not able to sleep all night and tried Acetaminophen this am without relief of pain. She presented to the ED after having the pain all night. She denies vomiting but has had some nausea. She denies passing any blood, gas or stool. she has had some urine but states it hurts everywhere in her abdomen so she is unsure if there is pain with urination or just the abdomen pain. She has had prior appendectomy and hysterectomy. She had multiple biopsies of colon and stomach done yesterday. No fever or chills. Timing/Duration: 12-24 Hours Severity/Quality: Severe, Cramping, Sharp Location: Generalized Abdomen (but worse on right side) Associated Symptoms: No Back Pain, No Chest Pain, No Diaphoresis, No Fever/Chills, No Headache, No Heartburn, No Shortness of Air; Swelling/Mass in Abdomen; No Syncope Allergies and Home Medications Allergies Coded Allergies: No Known Drug Allergies (Unverified , 07/16/19) Home Medications Albuterol Sulfate 1 Puff Puff, 2 PUFF IH Q4H, (Reported) 1 PUFF = 90 MCG Alendronate Sodium 70 Mg Tablet, 70 MG PO WEEK, (Reported) Amlodipine Besylate 10 Mg Tablet, 10 MG PO DAILY, (Reported) Aspirin 81 Mg Tab.chew, 81 MG PO DAILY, (Reported) Atorvastatin Calcium 10 Mg Tablet, 10 MG PO HS, (Reported) Clopidogrel Bisulfate 75 Mg Tablet, 75 MG PO DAILY, (Reported) Ferrous Sulfate 325 Mg Tablet, 325 MG PO DAILY, (Reported) Losartan/Hydrochlorothiazide 1 Each Tablet, 1 EACH PO DAILY, (Reported) Multivitamin 1 Each Tablet, 1 EACH PO DAILY, (Reported) Pantoprazole Sodium 40 Mg Tablet.dr, 40 MG PO DAILY Prescribed by: RUMA LOPES on 01/11/21 0933 Potassium Chloride 10 Meq Capsule.er, 10 MEQ PO BID, (Reported) Tiotropium Monitor 1 Inh Aerp, 1 INH IH BID, (Reported) Trazodone HCl 50 Mg Tablet, 50 MG PO HS, (Reported) Patient Home Medication List Home Medication List Reviewed: Yes Review of Systems Review of Systems Constitutional: No chills, No fever EENTM: No Symptoms Reported Respiratory: No Symptoms Reported Cardiovascular: No Symptoms Reported Gastrointestinal: See HPI, Abdomen Distended, Abdominal Pain (diffuse), Nausea; Denies Rectal Bleeding, Denies Vomiting Genitourinary: No Symptoms Reported Musculoskeletal: no symptoms reported Skin: no symptoms reported Psychiatric/Neurological: Anxiety Past Mgckjih-Rhqxes-Vhcwuj Hx Seasonal Allergies Seasonal Allergies: Yes Past Medical History Surgeries: Yes (LT HAND SURG) Appendectomy, Hysterectomy, Orthopedic Respiratory: Yes COPD Cardiac: Yes (STENTS IN LEGS 09/30) High Cholesterol, Hypertension 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 oz. kg; 23.04 BMI Method: General Appearance: moderate distress Neck: non-tender, full range of motion, supple, normal inspection Respiratory: chest non-tender, lungs clear, normal breath sounds, no respiratory distress, no accessory muscle use Cardiovascular: normal peripheral pulses, regular rate, rhythm Gastrointestinal: soft, abnormal bowel sounds (tympanic), distended, guarding, rebound, tenderness (diffuse) Rectal: deferred Extremities: normal range of motion, non-tender, normal capillary refill Neurologic/Psychiatric: alert, oriented x 3 Skin: normal color, warm/dry Focused Exam Lactate Level 01/12/21 06:18: Lactic Acid Level 1.16 Lactic Acid Level Laboratory Tests Test 01/12/21 06:18 Lactic Acid Level 1.16 MMOL/L (0.50-2.00) Progress/Results/Core Measures Results/Orders Lab Results Laboratory Tests Test 01/12/21 05:26 01/12/21 06:18 01/12/21 06:42 Range/Units White Blood Count 24.1 H 4.3-11.0 10^3/uL Red Blood Count 4.21 3.80-5.11 10^6/uL Hemoglobin 13.9 11.5-16.0 g/dL Hematocrit 40 35-52 % Mean Corpuscular Volume 94 80-99 fL Mean Corpuscular Hemoglobin 33 25-34 pg Mean Corpuscular Hemoglobin Concent 35 32-36 g/dL Red Cell Distribution Width 12.1 10.0-14.5 % Platelet Count 338 130-400 10^3/uL Mean Platelet Volume 9.5 9.0-12.2 fL Immature Granulocyte % (Auto) 1 % Neutrophils (%) (Auto) 88 H 42-75 % Lymphocytes (%) (Auto) 4 L 12-44 % Monocytes (%) (Auto) 7 0-12 % Eosinophils (%) (Auto) 0 0-10 % Basophils (%) (Auto) 1 0-10 % Neutrophils # (Auto) 21.3 H 1.8-7.8 X 10^3 Lymphocytes # (Auto) 0.9 L 1.0-4.0 X 10^3 Monocytes # (Auto) 1.6 H 0.0-1.0 X 10^3 Eosinophils # (Auto) 0.0 0.0-0.3 10^3/uL Basophils # (Auto) 0.1 0.0-0.1 10^3/uL Immature Granulocyte # (Auto) 0.2 H 0.0-0.1 10^3/uL Neutrophils % (Manual) 85 % Lymphocytes % (Manual) 1 % Monocytes % (Manual) 7 % Band Neutrophils 5 % Atypical Lymphocytes 2 % Blood Morphology Comment NORMAL Sodium Level 128 L 135-145 MMOL/L Potassium Level 4.0 3.6-5.0 MMOL/L Chloride Level 87 L 98-107 MMOL/L Carbon Dioxide Level 26 21-32 MMOL/L Anion Gap 15 H 5-14 MMOL/L Blood Urea Nitrogen 11 7-18 MG/DL Creatinine 0.85 0.60-1.30 MG/DL Estimat Glomerular Filtration Rate 67 BUN/Creatinine Ratio 13 Glucose Level 144 H 70-105 MG/DL Calcium Level 9.7 8.5-10.1 MG/DL Corrected Calcium 9.3 8.5-10.1 MG/DL Total Bilirubin 0.5 0.1-1.0 MG/DL Aspartate Amino Transf (AST/SGOT) 40 H 5-34 U/L Alanine Aminotransferase (ALT/SGPT) 65 H 0-55 U/L Alkaline Phosphatase 144 H 40-136 U/L Total Protein 7.7 6.4-8.2 GM/DL Albumin 4.5 3.2-4.5 GM/DL Lipase 19 8-78 U/L Lactic Acid Level 1.16 0.50-2.00 MMOL/L My Orders Orders - TANIA MURRELL MD Comprehensive Metabolic Panel (01/12/21 05:19) Lipase (01/12/21 05:19) Ua Culture If Indicated (01/12/21 05:19) Ed Iv/Invasive Line Start (01/12/21 05:19) Cbc With Automated Diff (01/12/21 05:19) Ct Abdomen/Pelvis Wo (01/12/21 05:26) Ns Iv 1000 Ml (Sodium Chloride 0.9%) (01/12/21 05:26) Fentanyl Inj (Sublimaze Injection) (01/12/21 05:26) Ondansetron Injection (Zofran Injectio (01/12/21 05:26) Manual Differential (01/12/21 05:26) Blood Culture (01/12/21 06:04) Lactic Acid Analyzer (01/12/21 06:04) Ns Iv 1000 Ml (Sodium Chloride 0.9%) (01/12/21 06:12) Fentanyl Inj (Sublimaze Injection) (01/12/21 06:12) Vital Signs/I&O 01/12/21 05:20 Temp 36.5 Pulse 105 Resp 20 B/P (MAP) 141/51 (81) Pulse Ox 100 O2 Delivery Room Air Progress Progress Note #1: Progress Note check labs, urine and CT scan. Give IVF for hydration, Fentanyl for pain, Zofran to prevent n/v from pain and Fentanyl. CT scan will help show if she has perforation or free air. Differential diagnosis includes perforated bowel, colitis, ischemic bowel, gaseous distention of the bowel, bowel obstruction, kidney stone, pyelonephritis, UTI Progress Note #2: Progress Note Labs shows elevated white blood cell count of 24,000 with a left shift. Chemistry shows stable chronic hyponatremia. She has mild elevation of her LFTs which again is also chronic and stable. Patient continues have severe pain despite pain medicine. Progress Note #3: Progress Note Blood cultures and lactic acid were added due to the elevated white blood cell count. CT scan showed distended colon but no evidence of perforation or free air. She does have some stranding in the mesentery. As she continued to have severe pain and greatly distended colon Case was discussed with Dr. Lopes. He accepted patient for observation stay to do a decompression colonoscopy this morning. Consult [facility] for medical management as well as since she had elevated white blood cell count and history of high blood pressure as well as high cholesterol. Dr. Whitehead advised of consult. Lactic acid came back not elevated Diagnostic Imaging Diagonstic Imaging: CT Plain Films/CT/US/NM/MRI: abdomen, pelvis Comments [facility]. [place], [place] NAME: AUDREY DOYLE [facility] REC#: [id number] PT STATUS: REG ER : 1955 PHYSICIAN: TANIA MURRELL MD ADMIT DATE: 01/12/21/ER FS Draft Date of Exam:01/12/21 CT ABDOMEN/PELVIS WO CT ABDOMEN/PELVIS WO TECHNIQUE: Unenhanced CT imaging of the abdomen and pelvis was performed. 2-D reformats are created and submitted for interpretation. Automatic exposure controls were utilized to optimize patient dose. INDICATION: Abdominal pain and bloating. Recent endoscopy. COMPARISON: None available. FINDINGS: Evaluation of the abdominal viscera is mildly limited without contrast. Lower chest: Scattered areas of mucous plugging and bronchial wall thickening lung bases are most compatible with chronic bronchitis. No pericardial or pleural effusion. Peritoneum: No free intraperitoneal air or fluid. Liver and biliary system: Unenhanced liver is normal. Gallbladder is contracted without radiopaque gallstones. No biliary duct dilatation. Spleen and Pancreas: Spleen is normal. Unenhanced pancreas is grossly normal. Adrenals: Normal. tract: No renal or ureteral calculi. No obstructive uropathy. Numerous calcifications in the bilateral renal hilar vascular in nature. Urinary bladder is partially filled without wall thickening. Status post hysterectomy. No adnexal mass. GI tract: Stomach is partially filled with fluid and there is no wall thickening. No bowel obstruction. Portions of the ascending and transverse colon are air-filled but have no wall thickening. No pericolonic inflammatory change. Vasculature and Lymph nodes: Normal caliber aorta with severe diffuse atherosclerotic plaquing. No abdominal or pelvic lymphadenopathy. Musculoskeletal: Subacute to chronic nonhealed fractures of the left superior and inferior pubic rami. IMPRESSION: 1. No free intraperitoneal air to suggest bowel perforation. 2. Air-filled colon is likely from recent colonoscopy. No bowel obstruction, colitis or diverticulitis. 3. No urinary tract calculi or obstructive uropathy. 4. Severe atherosclerotic plaquing throughout the aorta and its branches. Dictated on workstation # [id number] Dict: 01/12/21605 Trans: 01/12/21611 [id number] Interpreted by: SHEILA SUAREZ MD Electronically signed by: Reviewed: Reviewed by Me Departure Communication (Admissions) Time/Spoke to Admitting Phy: 06:20 d/w Dr. Lopes and advised him of patient having severe abdominal pain with distention and dilated colon on CT. Elevated WBC to 24K so lactic and blood cultures added. He advised to give Simethicone for gas and distention. Observation stay to do decompression colonoscopy this am. Consult [facility] since she has elevated WBC and comorbidities of COPD, Htn, High cholesterol Time/Spoke to Consulting Phy: 06:25 d/w DR. Whitehead for [facility] so she was aware of consult Impression Primary Impression: Abdominal distension, gaseous Additional Impressions: Dilatation of colon Leukocytosis, unspecified Diffuse abdominal pain Disposition: 30 STILL A PATIENT Condition: Stable Admissions Decision to Admit Reason: Admit from ER (General) Decision to Admit/Date: Jan 12, 2021 Time/Decision to Admit Time: 06:25 Departure-Patient Inst. Referrals: GLADYS GONZALES MD (PCP/Family) Primary Care Physician TANIA MURRELL MD Jan 12, 2021 05:35
[2021-01-12 05:43] LABS: BASOPHILS # (AUTO) 0.1 10^3/uL (0.0-0.1); BASOPHILS % (AUTO) 1 % (0-10); EOSINOPHILS % (AUTO) 0 % (0-10); HEMATOCRIT 40 % (35-52); HEMOGLOBIN 13.9 g/dL (11.5-16.0); LYMPHOCYTES # (AUTO) 0.9 X 10^3 (1.0-4.0); LYMPHOCYTES % (AUTO) 4 % (12-44); MEAN CORPUSCULAR HEMOGLOBIN 33 pg (25-34); MEAN CORPUSCULAR HGB CONC 35 g/dL (32-36); MEAN CORPUSCULAR VOLUME 94 fL (80-99); MEAN PLATELET VOLUME 9.5 fL (9.0-12.2); MONOCYTES # (AUTO) 1.6 X 10^3 (0.0-1.0); MONOCYTES % (AUTO) 7 % (0-12); NEUTROPHILS # (AUTO) 21.3 X 10^3 (1.8-7.8); NEUTROPHILS % (AUTO) 88 % (42-75); PLATELET COUNT 338 10^3/uL (130-400); WHITE BLOOD COUNT 24.1 10^3/uL (4.3-11.0)
[2021-01-12 06:01] LABS: BILIRUBIN,TOTAL 0.5 MG/DL (0.1-1.0); CALCIUM 9.7 MG/DL (8.5-10.1); CREATININE SERUM 0.85 MG/DL (0.60-1.30)
[2021-01-12 06:02] LABS: ALBUMIN 4.5 GM/DL (3.2-4.5); TOTAL PROTEIN 7.7 GM/DL (6.4-8.2)
[2021-01-12 06:08] LABS: ATYPICAL LYMPHOCYTES 2 %; BAND NEUTROPHILS 5 %; LYMPHOCYTES % (MANUAL) 1 %; MONOCYTES % (MANUAL) 7 %; NEUTROPHILS % (MANUAL) 85 %; RBC MORPH NORMAL
--- NOTE | 2021-01-12 06:13 | Diagnostic Imaging Report ---
CT ABDOMEN/PELVIS WO TECHNIQUE: Unenhanced CT imaging of the abdomen and pelvis was performed. 2-D reformats are created and submitted for interpretation. Automatic exposure controls were utilized to optimize patient dose. INDICATION: Abdominal pain and bloating. Recent endoscopy. COMPARISON: None available. FINDINGS: Evaluation of the abdominal viscera is mildly limited without contrast. Lower chest: Scattered areas of mucous plugging and bronchial wall thickening lung bases are most compatible with chronic bronchitis. No pericardial or pleural effusion. Peritoneum: No free intraperitoneal air or fluid. Liver and biliary system: Unenhanced liver is normal. Gallbladder is contracted without radiopaque gallstones. No biliary duct dilatation. Spleen and Pancreas: Spleen is normal. Unenhanced pancreas is grossly normal. Adrenals: Normal. tract: No renal or ureteral calculi. No obstructive uropathy. Numerous calcifications in the bilateral renal hilar vascular in nature. Urinary bladder is partially filled without wall thickening. Status post hysterectomy. No adnexal mass. GI tract: Stomach is partially filled with fluid and there is no wall thickening. No bowel obstruction. Portions of the ascending and transverse colon are air-filled but have no wall thickening. No pericolonic inflammatory change. Vasculature and Lymph nodes: Normal caliber aorta with severe diffuse atherosclerotic plaquing. No abdominal or pelvic lymphadenopathy. Musculoskeletal: Subacute to chronic nonhealed fractures of the left superior and inferior pubic rami. IMPRESSION: 1. No free intraperitoneal air to suggest bowel perforation. 2. Air-filled colon is likely from recent colonoscopy. No bowel obstruction, colitis or diverticulitis. 3. No urinary tract calculi or obstructive uropathy. 4. Severe atherosclerotic plaquing throughout the aorta and its branches. Dictated by: Dictated on workstation # [id number]
[2021-01-12 06:56] LABS: BILIRUBIN,URINE NEGATIVE (NEGATIVE); CLARITY,URINE CLEAR; COLOR,URINE YELLOW; GLUCOSE, URINE (UA) NEGATIVE (NEGATIVE); KETONES,URINE NEGATIVE (NEGATIVE); LEUKOCYTE ESTERASE ,URINE NEGATIVE (NEGATIVE); NITRITE,URINE NEGATIVE (NEGATIVE); PH,URINE 6.5 (5-9); PROTEIN,URINE NEGATIVE (NEGATIVE); WBC,URINE 0-2 /HPF
[2021-01-12 06:57] LABS: BACTERIA,URINE NEGATIVE /HPF; HYALINE CASTS, URINE 0-2 /LPF; SQUAMOUS EPITHELIAL CELL,UR 0-2 /HPF
[2021-01-12] MEDS ORDERED: fentaNYL INJ 100 MCG/2 ML AMP ONE (07:46)
[2021-01-12] MEDS ORDERED: fentaNYL INJ 100 MCG/2 ML AMP IVP ONE (08:00)
[2021-01-12] MEDS ORDERED: morphine INJ 4 MG/ML 1 ML (VIAL/SYRINGE) IVP ONE (09:00)
[2021-01-12] MEDS ORDERED: CATHETER FLUSH 10 ML SYR IV PRN (09:15)
[2021-01-12] MEDS ORDERED: ONDANSETRON 4 MG/2 ML (SDV) Z0FRAN IV PRN (09:15)
[2021-01-12] MEDS: LACTATED RINGERS 1,000 ML IV SCH ×2 (09:32→18:02)
--- NOTE | 2021-01-12 09:45 | History & Physical-Surgical ---
LETHA EDWARDS 01/12/21 0945: History of Present Illness History of Present Illness Reason for visit/HPI 65yo F with PMH of appendectomy, hysterectomy, HTN, and chronic constipation presents with R sided abdominal pain that started yesterday after her EGD/Colonoscopy at [facility] where multiple biopsies on stomach/colon was performed. Pt is lying on her left side and only complaint is the R sided abdominal pain. Denies any fever, vomiting, diarrhea, nausea, chills, or chest pain. On exam, abdomen seems hard and distended with tenderness mostly localized to the RLQ. Abd/pelvis CT showed no intraperitoneal air suggesting no perforation, but air from colonoscopy. Plans for decompressive colonoscopy today. Date of Admission Jan 12, 2021 at 08:48 Date Seen by a Provider: Jan 12, 2021 Time Seen by a Provider: 09:50 I consulted on this patient on 01/12/21 09:40 Attending Physician Ruma Lopes DO Admitting Physician Keven Santo MD Consult Allergies and Home Medications Allergies Coded Allergies: sulfamethoxazole (Verified Allergy, Mild, Nausea, 01/12/21) trimethoprim (Verified Allergy, Mild, Nausea, 01/12/21) Home Medications Acetaminophen 500 Mg Tablet, 1,000 MG PO Q8H PRN for PAIN-MILD (1-4), (Reported) Last Action: Reviewed Albuterol Sulfate 1 Puff Puff, 2 PUFF IH Q4H PRN for SHORTNESS OF BREATH, (Reported) Last Action: Reviewed Alendronate Sodium 70 Mg Tablet, 70 MG PO SAT, (Reported) Last Action: Converted Amlodipine Besylate 10 Mg Tablet, 10 MG PO DAILY, (Reported) Last Action: Continued Aspirin 81 Mg Tablet.dr, 81 MG PO DAILY, (Reported) Last Action: Continued Atorvastatin Calcium 10 Mg Tablet, 10 MG PO DAILY, (Reported) Last Action: Continued Clopidogrel Bisulfate 75 Mg Tablet, 75 MG PO DAILY, (Reported) LAST FILLED 08-01-2020 #90/90 DAY SUPPLY Last Action: Continued Ferrous Sulfate 325 Mg Tablet, 325 MG PO BID, (Reported) Last Action: Reviewed Losartan/Hydrochlorothiazide 1 Each Tablet, 1 EACH PO DAILY, (Reported) Last Action: Converted Multivitamin 1 Each Tablet, 1 EACH PO DAILY, (Reported) Last Action: Reviewed Omeprazole 40 Mg Capsule., 40 MG PO DAILY, (Reported) Last Action: Converted Potassium Chloride 10 Meq Capsule.er, 10 MEQ PO BID, (Reported) Last Action: Converted Tiotropium [place] 1 Inh Aerp, 1 INH IH BID, (Reported) Last Action: Continued Trazodone HCl 50 Mg Tablet, 50 MG PO HS, (Reported) Last Action: Continued Past Ldzgdee-Ogytvm-Nddfam Hx Patient Social History 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) Tobacco Use?: Yes Tobacco type used: Cigarettes Smoking Status: Current Everyday Smoker (1 ppd for 50 years) Smokeless Tobacco Frequency: Never a User Use of E-Cig and/or Vaping dev: Yes E-Cig or Vaping type used: Nicotine Use of E-Cig and/or Vaping Rayshawn: Current Everyday User Substance use?: No Alcohol Use?: No Pt feels they are or have been: No Immunizations Up To Date Date of Influenza Vaccine: Jan 29, 2020 Tetanus Booster (TDap): More Than 5 Years Hepatitis A: No Hepatitis B: Yes Seasonal Allergies Seasonal Allergies: Yes Current Status status: No status: No Advance Directives: No Advance Directive Location: Home Communicates: Verbally Primary Language: Citizen Of [place] Preferred Spoken Language: Citizen Of [place] Is interpretation needed?: No Past Medical History Surgeries: Appendectomy, Hysterectomy, Orthopedic COPD High Cholesterol, Hypertension [employer] History: Hysterectomy Chronic Constipation Loss of Vision: Denies Hearing Impairment: Denies Blood Disorders: Yes (Anemia) Adverse Reaction/Blood Tranf: No Family Medical History Cancer (Dad Lung), CAD Over 55 Years Old (Mom), Hypertension (Mom) Review of Systems Constitutional: No chills, No fever, No malaise; weight loss (15 lbs this year) EENTM: throat pain; No ear pain, No vision loss Respiratory: cough, short of breath; No wheezing Cardiovascular: No chest pain, No edema, No palpitations Gastrointestinal: abdominal pain (R sided); No diarrhea, No nausea, No vomiting Genitourinary: No dysuria, No frequency, No incontinence Musculoskeletal: see HPI; No back pain, No neck pain Skin: No change in color, No lesions, No rash Psychiatric/Neurological: Denies Headache, Denies Numbness, Denies Tingling Physical Exam Vital Signs Vital Signs - First Documented 01/12/21 05:20 Temp 36.5 Pulse 105 Resp 20 B/P (MAP) 141/51 (81) Pulse Ox 100 O2 Delivery Room Air Capillary Refill : Less Than 3 Seconds Height, Weight, BMI Height: '" Weight: lbs. oz. kg; 21.25 BMI Method: General Appearance: WD/WN, Moderate Distress HEENT: PERRL/EOMI, Pharynx Normal, Moist Mucous Membranes Neck: Full Range of Motion, Normal Inspection, Non Tender, Supple Respiratory: Chest Non Tender, No Respiratory Distress, Decreased Breath Sounds Cardiovascular: Regular Rate, Rhythm, No Murmur Gastrointestinal: No Soft; Abnormal Bowel Sounds, Distended, Tenderness (R sided mostly RLQ) Back: Normal Inspection, No CVA Tenderness, No Vertebral Tenderness Extremity: Normal Inspection, Normal Range of Motion, Non Tender, No Calf Tenderness, No Pedal Edema Neurologic/Psychiatric: Alert, Oriented x3, No Motor/Sensory Deficits, Normal Mood/Affect Skin: Normal Color, Warm/Dry Data Review Labs Laboratory Tests 01/12/21 05:26: White Blood Count 24.1H, Red Blood Count 4.21, Hemoglobin 13.9, Hematocrit 40, Mean Corpuscular Volume 94, Mean Corpuscular Hemoglobin 33, Mean Corpuscular Hemoglobin Concent 35, Red Cell Distribution Width 12.1, Platelet Count 338, Mean Platelet Volume 9.5, Immature Granulocyte % (Auto) 1, Neutrophils (%) (Auto) 88H, Lymphocytes (%) (Auto) 4L, Monocytes (%) (Auto) 7, Eosinophils (%) (Auto) 0, Basophils (%) (Auto) 1, Neutrophils # (Auto) 21.3H, Lymphocytes # (Auto) 0.9L, Monocytes # (Auto) 1.6H, Eosinophils # (Auto) 0.0, Basophils # (Auto) 0.1, Immature Granulocyte # (Auto) 0.2H, Neutrophils % (Manual) 85, Lymphocytes % (Manual) 1, Monocytes % (Manual) 7, Band Neutrophils 5, Atypical Lymphocytes 2, Blood Morphology Comment NORMAL, Sodium Level 128L, Potassium Level 4.0, Chloride Level 87L, Carbon Dioxide Level 26, Anion Gap 15H, Blood Urea Nitrogen 11, Creatinine 0.85, Estimat Glomerular Filtration Rate 67, BUN/Creatinine Ratio 13, Glucose Level 144H, Calcium Level 9.7, Corrected Calcium 9.3, Total Bilirubin 0.5, Aspartate Amino Transf (AST/SGOT) 40H, Alanine Aminotransferase (ALT/SGPT) 65H, Alkaline Phosphatase 144H, Total Protein 7.7, Albumin 4.5, Lipase 19 01/12/21 06:18: Lactic Acid Level 1.16 01/12/21 06:42: Urine Color YELLOW, Urine Clarity CLEAR, Urine pH 6.5, Urine Specific [place] 1.010L, Urine Protein NEGATIVE, Urine Glucose (UA) NEGATIVE, Urine Ketones NEGATIVE, Urine Nitrite NEGATIVE, Urine Bilirubin NEGATIVE, Urine Urobilinogen 0.2, Urine Leukocyte Esterase NEGATIVE, Urine RBC (Auto) NEGATIVE, Urine RBC NONE, Urine WBC 0-2, Urine Squamous Epithelial Cells 0-2, Urine Crystals NONE, Urine Bacteria NEGATIVE, Urine Casts PRESENT, Urine Hyaline Casts 0-2H, Urine Mucus NEGATIVE, Urine Culture Indicated NO Assessment/Plan Assessment/Plan Assessment/Plan Abdominal distention due to gas after EGD/Colonoscopy HTN Tachycardia Transaminitis 01/12/21: Decompression Colonoscopy IV Fluids Continue to monitor KENY LOPESTT Susan BROTHERS 01/12/21 2441: History of Present Illness History of Present Illness Reason for visit/HPI Patient is a 65-year-old female who underwent colonoscopy yesterday with multiple polypectomies and EGD. Patient complaining of right-sided abdominal pain and distention. Patient went to the emergency department for further evaluation. She had a CT scan of the abdomen pelvis with no free air. There was dilated colon. Patient states she is unable to pass any flatus. She is not had bowel movement. Patient states she is doing fine at than it is sallow later yesterday evening and things began worsening. Nothing seems to make better. Nothing seems to make it worse that she knows of. Denies nausea vomiting fever sweats chills shortness of breath or chest pain. Allergies and Home Medications Allergies Coded Allergies: sulfamethoxazole (Verified Allergy, Mild, Nausea, 01/12/21) trimethoprim (Verified Allergy, Mild, Nausea, 01/12/21) Home Medications Acetaminophen 500 Mg Tablet, 1,000 MG PO Q8H PRN for PAIN-MILD (1-4), (Reported) Last Action: Reviewed Albuterol Sulfate 1 Puff Puff, 2 PUFF IH Q4H PRN for SHORTNESS OF BREATH, (Reported) Last Action: Reviewed Alendronate Sodium 70 Mg Tablet, 70 MG PO SAT, (Reported) Last Action: Converted Amlodipine Besylate 10 Mg Tablet, 10 MG PO DAILY, (Reported) Last Action: Continued Aspirin 81 Mg Tablet.dr, 81 MG PO DAILY, (Reported) Last Action: Continued Atorvastatin Calcium 10 Mg Tablet, 10 MG PO DAILY, (Reported) Last Action: Continued Clopidogrel Bisulfate 75 Mg Tablet, 75 MG PO DAILY, (Reported) LAST FILLED 08-01-2020 #90/90 DAY SUPPLY Last Action: Continued Ferrous Sulfate 325 Mg Tablet, 325 MG PO BID, (Reported) Last Action: Reviewed Losartan/Hydrochlorothiazide 1 Each Tablet, 1 EACH PO DAILY, (Reported) Last Action: Converted Multivitamin 1 Each Tablet, 1 EACH PO DAILY, (Reported) Last Action: Reviewed Omeprazole 40 Mg Capsule.dr, 40 MG PO DAILY, (Reported) Last Action: Converted Potassium Chloride 10 Meq Capsule.er, 10 MEQ PO BID, (Reported) Last Action: Converted Tiotropium [place] 1 Inh Aerp, 1 INH IH BID, (Reported) Last Action: Continued Trazodone HCl 50 Mg Tablet, 50 MG PO HS, (Reported) Last Action: Continued Patient Home Medication List Home Medication List Reviewed: Yes Review of Systems Constitutional: No chills, No malaise EENTM: throat pain; No ear pain, No vision loss Respiratory: cough, short of breath; No wheezing Cardiovascular: No chest pain Gastrointestinal: abdominal pain (R sided); No diarrhea, No nausea, No vomiting Musculoskeletal: No back pain, No joint pain, No neck pain Skin: No change in color, No lesions Psychiatric/Neurological: Denies Headache, Denies Numbness, Denies Tingling All Other Systems Reviewed Negative Unless Noted: Yes (Negative excepted noted.) Physical Exam General Appearance: WD/WN, Mild Distress HEENT: PERRL/EOMI, Normal ENT Inspection, Moist Mucous Membranes Neck: Non Tender, Supple Respiratory: Chest Non Tender, No Accessory Muscle Use, No Respiratory Distress Cardiovascular: Regular Rate, Rhythm, No JVD Gastrointestinal: Distended, Tenderness (R sided mostly RLQ) Rectal: Deferred Back: Normal Inspection, No CVA Tenderness, No Vertebral Tenderness Extremity: Normal Inspection, Normal Range of Motion, Non Tender, No Calf Tenderness Neurologic/Psychiatric: Alert, Oriented x3, No Motor/Sensory Deficits, Normal Mood/Affect Skin: Normal Color, Warm/Dry Lymphatic: No Adenopathy Assessment/Plan Assessment/Plan Admission Diagonsis Abdominal pain right sided Abdominal distention Status post colonoscopy with hot biopsy polypectomies and EGD Leukocytosis. Admission Status: Observation Assessment/Plan Abdominal pain right sided Abdominal distention Status post colonoscopy with hot biopsy polypectomies and EGD Leukocytosis. Patient was dilated colon primarily on the right side status post colonoscopy. Patient not passing flatus. We discussed risk and benefits of having decompressive colonoscopy and she understands and wishes to proceed. Patient to go to endoscopy today for decompressive colonoscopy. Feel that this could be either positional or Allie's Would limit narcotics Also try to ambulate and change positions. Also giving simethicone. Supervisory-Addendum Brief Verification & Attestation Participated in pt care: history, MDM, physical Personally performed: exam, history, MDM, supervision of care Care discussed with: Medical Student Procedures: n/a Results interpretation: Verified all documentation Verification and Attestation of Medical Student E/M Service A medical student performed and documented this service in my presence. I reviewed and verified all information documented by the medical student and made modifications to such information, when appropriate. I personally performed the physical exam and medical decision making. Ruma Lopes, Jan 12, 2021,10:37 LETHA EDWARDS Jan 12, 2021 09:45 RUMA LOPES DO Jan 12, 2021 22:37
[2021-01-12] MEDS ORDERED: LACTATED RINGERS 1,000 ML IV ONE (09:47)
[2021-01-12] MEDS ORDERED: MIDAZOLAM 2 MG/2 ML (VERSED) VIAL ONE (09:51)
[2021-01-12] MEDS ORDERED: PROPOFOL INJECTION 50 ML IV ONE (09:51)
[2021-01-12] MEDS ORDERED: LACTATED RINGERS 1,000 ML IV STA (10:04)
--- NOTE | 2021-01-12 11:39 | Progress Note-Post Operative ---
Post-Operative Progess Note Surgeon (s)/Assembler (s) Surgeon RUMA LOPES DO Assembler: na Pre-Operative Diagnosis colonic distention, abdominal pain Post-Operative Diagnosis same Procedure & Operative Findings Date of Procedure 01/12/21 Procedure Performed/Findings decompressive colonoscopy Anesthesia Type per supervisor shuttle veneering Estimated Blood Loss Estimated blood loss (mL): none Specimens/Packing Specimens Removed na RUMA LOPES DO Jan 12, 2021 11:39
[2021-01-12] MEDS: fentaNYL INJ 100 MCG/2 ML AMP IV PRN ×3 (11:42→15:55)
[2021-01-12] MEDS: SIMETHICONE 80 MG (MYLICON) CHEW PO SCH ×4 (11:42→21:38)
[2021-01-12] MEDS ORDERED: CLOP75TA28 PO (14:52)
[2021-01-12] MEDS ORDERED: ASPI-1238 PO (14:52)
[2021-01-12] MEDS ORDERED: OMEP40CA6 PO (14:52)
[2021-01-12] MEDS ORDERED: ACET-2267 PO (14:52)
[2021-01-12] MEDS: amLODIPine 10 MG (NORVASC) TAB PO SCH (16:23)
[2021-01-12] MEDS: LOSARTAN 100 MG (COZAAR) TABLET PO SCH (16:23)
[2021-01-12] MEDS ORDERED: LOSARTAN 100 MG (COZAAR) TABLET PO SCH (16:30)
[2021-01-12] MEDS ORDERED: NON-FORMULARY MEDICATION 1 EA EA (Alendronate Sodium 70 MG) PO SCH (17:00)
--- NOTE | 2021-01-12 17:21 | Diagnostic Imaging Report ---
Indication: Colonic distention. 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 Findings: Single view of the abdomen demonstrates continued but decreased colonic distention. There is no large pocket of free air. Osseous structures are stable. Atherosclerotic disease is present. Impression: Persistent but decreased proximal colonic distention. Dictated by: Dictated on workstation # [id number]
[2021-01-12] MEDS: morphine INJ 4 MG/ML 1 ML (VIAL/SYRINGE) IVP PRN ×2 (18:01→21:39)
[2021-01-12] MEDS: traZODone 50 MG (DESYREL) TAB PO SCH (21:38)
[2021-01-12] MEDS: KCL 10 MEQ TAB (MICRO K) PO SCH (21:38)
--- NOTE | 2021-01-12 22:33 | Consultation ---
HPI History of Present Illness: Asked to see patient due to leukocytosis after colonoscopy. Patient is having abdominal pain and elevated blood pressures. Patient states that pain started after having colonoscopy with multiple bx yesterday. Patient has a h/o well controlled HTN. States that she was not able to take her meds this AM due to pain. Patient to have decompressive colonoscopy this AM. Source: patient, spouse Exam Limitations: no limitations Date seen by provider: Jan 12, 2021 Time Seen by Provider: 10:15 Attending Physician Jose M Vicente DO PCP SelfKeven MD Consult Date of Admission Jan 12, 2021 at 08:48 Home Medications Home Medications Reviewed patient Home Medication Reconciliation performed by pharmacy medication reconciliations unit technician and/or nursing. Patients Allergies have been reviewed. 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) Smoking Status: Current Everyday Smoker (1 ppd for 50 years) 2nd Hand Smoke Exposure: No Recent Hopitalizations: No Alcohol Use?: No Tobacco type used: Cigarettes Have you traveled recently?: No Immunizations Up To Date Date of Influenza Vaccine: Jan 29, 2020 Past Medical History HTN Family Medical History Significant Family History: Cancer (Dad Lung), CAD Over 55 Years Old (Mom), Hypertension (Mom) Review of Systems ([facility]) Constitutional: no symptoms reported; No chills, No fever EENTM: no symptoms reported; No mouth pain, No nose congestion Respiratory: no symptoms reported; No cough, No dyspnea on exertion, No short of breath Cardiovascular: no symptoms reported; No chest pain, No edema, No palpitations Gastrointestinal: abdominal pain, loss of appetite, nausea; No vomiting Genitourinary: no symptoms reported; No dysuria, No frequency, No hematuria : No Musculoskeletal: no symptoms reported Skin: no symptoms reported Psychiatric/Neurological: No Symptoms Reported Reviewed Test Results Reviewed Test Results Lab Laboratory Tests Test 01/12/21 05:26 01/12/21 06:18 01/12/21 06:42 Range/Units White Blood Count 24.1 H 4.3-11.0 10^3/uL Red Blood Count 4.21 3.80-5.11 10^6/uL Hemoglobin 13.9 11.5-16.0 g/dL Hematocrit 40 35-52 % Mean Corpuscular Volume 94 80-99 fL Mean Corpuscular Hemoglobin 33 25-34 pg Mean Corpuscular Hemoglobin Concent 35 32-36 g/dL Red Cell Distribution Width 12.1 10.0-14.5 % Platelet Count 338 130-400 10^3/uL Mean Platelet Volume 9.5 9.0-12.2 fL Immature Granulocyte % (Auto) 1 % Neutrophils (%) (Auto) 88 H 42-75 % Lymphocytes (%) (Auto) 4 L 12-44 % Monocytes (%) (Auto) 7 0-12 % Eosinophils (%) (Auto) 0 0-10 % Basophils (%) (Auto) 1 0-10 % Neutrophils # (Auto) 21.3 H 1.8-7.8 X 10^3 Lymphocytes # (Auto) 0.9 L 1.0-4.0 X 10^3 Monocytes # (Auto) 1.6 H 0.0-1.0 X 10^3 Eosinophils # (Auto) 0.0 0.0-0.3 10^3/uL Basophils # (Auto) 0.1 0.0-0.1 10^3/uL Immature Granulocyte # (Auto) 0.2 H 0.0-0.1 10^3/uL Neutrophils % (Manual) 85 % Lymphocytes % (Manual) 1 % Monocytes % (Manual) 7 % Band Neutrophils 5 % Atypical Lymphocytes 2 % Blood Morphology Comment NORMAL Sodium Level 128 L 135-145 MMOL/L Potassium Level 4.0 3.6-5.0 MMOL/L Chloride Level 87 L 98-107 MMOL/L Carbon Dioxide Level 26 21-32 MMOL/L Anion Gap 15 H 5-14 MMOL/L Blood Urea Nitrogen 11 7-18 MG/DL Creatinine 0.85 0.60-1.30 MG/DL Estimat Glomerular Filtration Rate 67 BUN/Creatinine Ratio 13 Glucose Level 144 H 70-105 MG/DL Calcium Level 9.7 8.5-10.1 MG/DL Corrected Calcium 9.3 8.5-10.1 MG/DL Total Bilirubin 0.5 0.1-1.0 MG/DL Aspartate Amino Transf (AST/SGOT) 40 H 5-34 U/L Alanine Aminotransferase (ALT/SGPT) 65 H 0-55 U/L Alkaline Phosphatase 144 H 40-136 U/L Total Protein 7.7 6.4-8.2 GM/DL Albumin 4.5 3.2-4.5 GM/DL Lipase 19 8-78 U/L Lactic Acid Level 1.16 0.50-2.00 MMOL/L Urine Color YELLOW Urine Clarity CLEAR Urine pH 6.5 5-9 Urine Specific [place] 1.010 L 1.016-1.022 Urine Protein NEGATIVE NEGATIVE Urine Glucose (UA) NEGATIVE NEGATIVE Urine Ketones NEGATIVE NEGATIVE Urine Nitrite NEGATIVE NEGATIVE Urine Bilirubin NEGATIVE NEGATIVE Urine Urobilinogen 0.2 < = 1.0 MG/DL Urine Leukocyte Esterase NEGATIVE NEGATIVE Urine RBC (Auto) NEGATIVE NEGATIVE Urine RBC NONE /HPF Urine WBC 0-2 /HPF Urine Squamous Epithelial Cells 0-2 /HPF Urine Crystals NONE /LPF Urine Bacteria NEGATIVE /HPF Urine Casts PRESENT /LPF Urine Hyaline Casts 0-2 H /LPF Urine Mucus NEGATIVE /LPF Urine Culture Indicated NO Physical Exam-([facility]) Physical Exam Vital Signs VS - Last 72 Hours, by Label 01/12/21 01/12/21 01/12/21 01/12/21 05:20 08:45 09:44 11:02 Temp 36.5 36.6 Pulse 105 107 90 Resp 20 20 16 B/P (MAP) 141/51 (81) 151/70 (97) Pulse Ox 100 96 96 99 O2 Delivery Room Air Room Air Room Air Room Air 01/12/21 01/12/21 01/12/21 01/12/21 11:07 12:00 13:29 15:07 Temp 36.9 36.9 Pulse 90 91 89 91 Resp 16 20 B/P (MAP) 181/84 (116) Pulse Ox 96 93 91 O2 Delivery Room Air Room Air 01/12/21 01/12/21 01/12/21 16:05 19:00 20:16 Temp 37.0 37.7 Pulse 94 100 109 Resp 18 20 B/P (MAP) 176/77 (110) 178/76 (110) Pulse Ox 91 93 O2 Delivery Room Air Room Air Capillary Refill : Less Than 3 Seconds General Appearance: WD/WN, mild distress Neck: non-tender, full range of motion, supple Respiratory: chest non-tender, lungs clear, normal breath sounds, no respiratory distress, no accessory muscle use Cardiovascular: normal peripheral pulses, regular rate, rhythm, no edema, no murmur Gastrointestinal: normal bowel sounds, distended; No guarding, No rebound; tenderness Back: no CVA tenderness, no vertebral tenderness Extremities: normal range of motion, non-tender, normal inspection, no pedal edema, no calf tenderness, normal capillary refill Neurologic/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: 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 II-XII nml as tested, no motor/sensory deficits, alert, normal mood/affect, oriented x 3 Skin: normal color, warm/dry Lymphatic: no adenopathy Assessment/Plan Assessment/Plan Admission Status: Observation (1) Abdominal distension, gaseous Status: Acute Assessment & Plan: - Asked to consult by Dr Vicente for medical consult, appreciate consult, compressive colonoscopy this AM (2) Leukocytosis, unspecified Status: Acute Assessment & Plan: - Will treat ppx for colitis with Cipro/flagyl, trend WBCs (3) Elevated LFTs Status: Chronic Assessment & Plan: - Reviewed previous labs from August, recommend outpatient workup (4) Hyponatremia Status: Chronic Assessment & Plan: - Review previous labs August (5) HTN (hypertension) Status: Chronic Assessment & Plan: - Restart home meds, likely uncontrolled 2/2 pain Qualifiers: Qualified Codes: I10 - Essential (primary) hypertension JOYCE PERSAUD MD Jan 12, 2021 22:33
[2021-01-12] MEDS: metroNIDAZOLE 500 MG (FLAGYL) TAB PO SCH (23:34)
[2021-01-12] MEDS: CIPROFLOXACIN 500 MG (CIPRO) TABLET PO SCH (23:34)
[2021-01-13] VITALS (9 sets, daily range): BP systolic 117–169; BP diastolic 56–90
[2021-01-13] MEDS: morphine INJ 4 MG/ML 1 ML (VIAL/SYRINGE) IVP PRN ×3 (01:56→10:23)
--- NOTE | 2021-01-13 04:41 | OPERATIVE REPORT ---
DATE OF SERVICE: 01/12/2021 PREOPERATIVE DIAGNOSIS: Colonic distention, abdominal pain, right side. POSTOPERATIVE DIAGNOSIS: Colonic distention, abdominal pain, right side. PROCEDURE: Decompressive colonoscopy. SURGEON: Ruma Vicente DO ANESTHESIA: Per STRAWHAT SIZER. ESTIMATED BLOOD LOSS: None. COMPLICATIONS: None. INDICATIONS: The patient is a 65-year-old female who underwent colonoscopy with hot biopsy polypectomy and EGD yesterday. The patient started having more abdominal distention and was found to have significant colonic distention on the right side. She understands risks and benefits of procedure and wished to proceed with procedure. Consent was signed in the chart. DESCRIPTION OF PROCEDURE: The patient was taken to the endoscopy suite, placed in left lateral recumbent position. Timeout was performed. Digital rectal exam was performed. Scope was inserted in the rectum and advanced through the sigmoid colon, some difficulty getting through the sigmoid colon due to some tight turns and the patient was repositioned multiple times. Scope was then slowly retracted back and then removed. A gastroscope was inserted into the anus, into the rectum and was able to be navigated through the sigmoid colon, was advanced all the way to the right colon encountering significant distention of the colon. The colon was then decompressed. The air was then suctioned decompressing the colon and the scope was then slowly retracted back continued to decompress the colon throughout the entire colon. Upon ending, the abdomen was then fired and soft. She was taken back to her room in stable condition. Job ID: [id number] DocumentID: [id number] Dictated Date: 01/12/2021 23:20:41 Battery Mechanic Date: 01/13/2021 04:39:45 Dictated By: RUMA VICENTE DO
[2021-01-13 06:33] LABS: HEMOGLOBIN 11.8 g/dL (11.5-16.0); MEAN CORPUSCULAR VOLUME 97 fL (80-99)
[2021-01-13 06:35] LABS: BASOPHILS # (AUTO) 0.1 10^3/uL (0.0-0.1); BASOPHILS % (AUTO) 1 % (0-10); EOSINOPHILS # (AUTO) 0.1 10^3/uL (0.0-0.3); EOSINOPHILS % (AUTO) 1 % (0-10); HEMATOCRIT 35 % (35-52); LYMPHOCYTES # (AUTO) 1.2 10^3/uL (1.0-4.0); LYMPHOCYTES % (AUTO) 11 % (12-44); MEAN CORPUSCULAR HEMOGLOBIN 33 pg (25-34); MEAN CORPUSCULAR HGB CONC 34 g/dL (32-36); MEAN PLATELET VOLUME 10.9 fL (9.0-12.2); MONOCYTES # (AUTO) 1.1 10^3/uL (0.0-1.0); MONOCYTES % (AUTO) 10 % (0-12); NEUTROPHILS # (AUTO) 8.3 10^3/uL (1.8-7.8); NEUTROPHILS % (AUTO) 77 % (42-75); PLATELET COUNT 212 10^3/uL (130-400); WHITE BLOOD COUNT 10.8 10^3/uL (4.3-11.0)
[2021-01-13 06:38] LABS: ALBUMIN 3.6 GM/DL (3.2-4.5); BILIRUBIN,TOTAL 0.5 MG/DL (0.1-1.0); CALCIUM 9.3 MG/DL (8.5-10.1); CREATININE SERUM 0.55 MG/DL (0.60-1.30); MAGNESIUM 1.4 MG/DL (1.6-2.4); POTASSIUM 2.7 MMOL/L (3.6-5.0); TOTAL PROTEIN 6.5 GM/DL (6.4-8.2)
[2021-01-13] MEDS: LACTATED RINGERS 1,000 ML IV SCH ×2 (06:52→15:34)
--- NOTE | 2021-01-13 06:58 | Anesthesia-General Post-Op ---
MAC Patient Condition Mental Status/LOC: Same as Preop Cardiovascular: Satisfactory Nausea/Vomiting: Absent Respiratory: Satisfactory Pain: Controlled Complications: Absent Post Op Complications Complications None Follow Up Care/Instructions Patient Instructions None needed. Anesthesiology Discharge Order Discharge Order Patient is doing well, no complaints, stable vital signs, no apparent adverse anesthesia problems. No complications reported per nursing. MARTHA CROWE CRNA Jan 13, 2021 06:58
--- NOTE | 2021-01-13 07:38 | Progress Note - Surgery ---
LETHA EDWARDS 01/13/21 0738: Subjective Date Seen by a Provider: Jan 13, 2021 Time Seen by a Provider: 06:00 Subjective/Events-last exam Pt was standing up and walking around to use the restroom upon entry. Still has some R sided abdominal pain. Reports unable to pass gas and has not had a bowel movement. X-ray shown persistent but decreased colonic distention. Pt denies fever, vomiting, diarrhea, or chest pain. On exam, abdomen a lot less distended, but still some residual R sided pain but seems less severe than yesterday. Review of Systems General: No Chills, No Fatigue; Appetite HEENT: No Head Aches, No Visual Changes, No Sore Throat Pulmonary: Dyspnea, Cough Cardiovascular: No: Chest Pain, Edema, Lt Headedness Gastrointestinal: No: Nausea, Vomiting, Diarrhea Genitourinary: No Dysuria, No Frequency, No Incontinence Musculoskeletal: No: neck pain, back pain, leg pain Neurological: No: Weakness, Numbness, Seizures Focused Exam Lactate Level 01/12/21 06:18: Lactic Acid Level 1.16 Objective Exam Vital Signs Date Time Temp Pulse Resp B/P (MAP) Pulse Ox O2 Delivery O2 Flow Rate FiO2 01/13/21 07:08 37.1 96 18 155/69 (97) 92 Nasal Cannula 2.00 01/13/21 04:38 37.1 91 18 167/79 (108) 96 Nasal Cannula 2.00 01/13/21 01:00 88 01/12/21 23:59 37.2 99 20 168/70 (102) 92 Nasal Cannula 2.00 01/12/21 21:40 Room Air 01/12/21 20:16 37.7 109 20 178/76 (110) 93 Room Air 01/12/21 19:00 100 01/12/21 16:05 37.0 94 18 176/77 (110) 91 Room Air 01/12/21 15:07 36.9 91 91 01/12/21 13:29 89 01/12/21 12:00 36.9 91 20 181/84 (116) 93 Room Air 01/12/21 11:07 90 16 96 Room Air 01/12/21 11:02 90 16 99 Room Air 01/12/21 09:44 96 Room Air 01/12/21 08:45 36.6 107 20 151/70 (97) 96 Room Air I & O 01/13/21 07:00 Intake Total 2300 ml Output Total 800 ml Balance 1500 ml Capillary Refill : Less Than 3 Seconds General Appearance: WD/WN, Mild Distress HEENT: PERRL/EOMI, Normal ENT Inspection Neck: Non Tender, Supple Respiratory: Chest Non Tender, No Accessory Muscle Use, No Respiratory Distress, Wheezing Cardiovascular: Regular Rate, Rhythm Gastrointestinal: normal bowel sounds, distended (much improved today); No guarding, No rebound; tenderness (R sided) Extremity: Normal Inspection, Normal Range of Motion, Non Tender Neurologic/Psychiatric: Alert, Oriented x3, No Motor/Sensory Deficits, Normal Mood/Affect Skin: Normal Color, Warm/Dry Results Lab Laboratory Tests 01/13/21 05:35: White Blood Count 10.8, Red Blood Count 3.60L, Hemoglobin 11.8, Hematocrit 35, Mean Corpuscular Volume 97, Mean Corpuscular Hemoglobin 33, Mean Corpuscular Hemoglobin Concent 34, Red Cell Distribution Width 12.0, Platelet Count 212, Mean Platelet Volume 10.9, Immature Granulocyte % (Auto) 1, Neutrophils (%) (Auto) 77H, Lymphocytes (%) (Auto) 11L, Monocytes (%) (Auto) 10, Eosinophils (%) (Auto) 1, Basophils (%) (Auto) 1, Neutrophils # (Auto) 8.3H, Lymphocytes # (Auto) 1.2, Monocytes # (Auto) 1.1H, Eosinophils # (Auto) 0.1, Basophils # (Auto) 0.1, Immature Granulocyte # (Auto) 0.1, Percent Immature Platelet Fraction 3.2, Sodium Level 132L, Potassium Level 2.7L, Chloride Level 94L, Carbon Dioxide Level 28, Anion Gap 10, Blood Urea Nitrogen 3L, Creatinine 0.55L, Estimat Glomerular Filtration Rate 111, BUN/Creatinine Ratio 5, Glucose Level 101, Calcium Level 9.3, Corrected Calcium 9.6, Magnesium Level 1.4L, Total Bilirubin 0.5, Aspartate Amino Transf (AST/SGOT) 29, Alanine Aminotransferase (ALT/SGPT) 56H, Alkaline Phosphatase 102, Total Protein 6.5, Albumin 3.6 Assessment/Plan Assessment/Plan Assessment/Plan S/P Decompression colonoscopy Abdominal pain right sided Abdominal distention Status post colonoscopy with hot biopsy polypectomies and EGD Leukocytosis Post decompressive colonoscopy, there is still slight distention and R sided abdominal pain but it seems improved versus yesterday. Pt denies being able to pass any gas and has not had a bowel movement since procedure. Will repeat decompressive colonoscopy and continue to monitor for any changes. Mg added to regimen to help with bowel movement. RUMA VICENTE DO 01/13/212001: Subjective Subjective/Events-last exam Patient still no flatus or bowel movement. Patient states she still having right-sided abdominal pain. The abdominal distention has returned. Compared to after colonoscopy. She has continued to try different positions in order to start moving the gas. She has been ambulating. Patient has a little bit less pain but still requiring pain medication. Patient tolerating liquids. Denies any nausea vomiting fever sweats chills shortness of breath or chest pain. Objective Exam General Appearance: WD/WN, Mild Distress HEENT: PERRL/EOMI, Normal ENT Inspection Neck: Non Tender, Supple Respiratory: Chest Non Tender, No Accessory Muscle Use, No Respiratory Distress Cardiovascular: Regular Rate, Rhythm, No JVD Gastrointestinal: distended (much improved today); No guarding, No rebound; tenderness (R sided) Extremity: Normal Inspection, Normal Range of Motion, Non Tender Neurologic/Psychiatric: Alert, Oriented x3, No Motor/Sensory Deficits, Normal Mood/Affect Skin: Normal Color, Warm/Dry Lymphatic: No Adenopathy Assessment/Plan Assessment/Plan Assessment/Plan S/P Decompression colonoscopy Abdominal pain right sided Abdominal distention Status post colonoscopy with hot biopsy polypectomies and EGD Leukocytosis Hypokalemia Hypomagnesemia Patient had return of her distention. She is still having quite a bit of right colonic distention. She clam shucking machine tender on the right side. We discussed risk and benefits of repeating decompressive colonoscopy and also discussed surgical intervention. She wishes to again try the decompressive colonoscopy. She understands risk and benefits and wishes to proceed. Patient n.p.o. now and will plan colonoscopy here shortly. Replace electrolytes Supervisory-Addendum Brief Verification & Attestation Participated in pt care: history, MDM, physical Personally performed: exam, history, MDM, supervision of care Care discussed with: Medical Student Procedures: n/a Results interpretation: Verified all documentation Verification and Attestation of Medical Student E/M Service A medical student performed and documented this service in my presence. I reviewed and verified all information documented by the medical student and made modifications to such information, when appropriate. I personally performed the physical exam and medical decision making. Ruma Vicente, Jan 13, 2021,11:56 LETHA EDWARDS Jan 13, 2021 07:38 RUMA VICENTE DO Jan 13, 2021 20:02
[2021-01-13] MEDS: UMECLIDINIUM BROMIDE (INCRUSE ELLIPTA) 7'S IH SCH (07:43)
[2021-01-13] MEDS: LOSARTAN 100 MG (COZAAR) TABLET PO SCH (08:26)
[2021-01-13] MEDS: CLOPIDOGREL 75 MG (PLAVIX) TABLET PO SCH ×2 (08:26→17:29)
[2021-01-13] MEDS: CIPROFLOXACIN 500 MG (CIPRO) TABLET PO SCH ×2 (08:26→22:33)
[2021-01-13] MEDS: SIMETHICONE 80 MG (MYLICON) CHEW PO SCH ×4 (08:27→21:10)
[2021-01-13] MEDS: metroNIDAZOLE 500 MG (FLAGYL) TAB PO SCH ×2 (08:27→21:10)
[2021-01-13] MEDS: PANTOPRAZOLE 40 MG (PROTONIX) TAB PO SCH (08:27)
[2021-01-13] MEDS: ASPIRIN E.C. 81 MG (ECOTRIN) TAB PO SCH ×2 (08:27→17:29)
[2021-01-13] MEDS: AtorvaSTATin TABLET 10 MG TABLET PO SCH (08:27)
[2021-01-13] MEDS: amLODIPine 10 MG (NORVASC) TAB PO SCH (08:27)
[2021-01-13] MEDS: KCL 10 MEQ TAB (MICRO K) PO SCH ×2 (08:27→21:10)
[2021-01-13] MEDS ORDERED: KCL 20 MEQ TAB (K-DUR) PO ONE (08:30)
--- NOTE | 2021-01-13 13:22 | Diagnostic Imaging Report ---
INDICATION: Abdominal distention, follow-up. TIME OF EXAM: 1:13 p.m. Correlation is made with prior radiograph from one day earlier. Moderate gaseous distention of the colonic bowel loop in the right abdomen persists. Transverse and descending colon appear to be fairly normal caliber. No small bowel distention is seen. There is no free air. No pathologic calcifications are identified. IMPRESSION: There is moderate distention of a right abdominal colonic bowel loop, similar to perhaps mildly improved when compared to yesterday's study. Dictated by: Dictated on workstation # [id number]
[2021-01-13] MEDS ORDERED: LACTATED RINGERS 1,000 ML IV ONE (13:44)
[2021-01-13] MEDS ORDERED: PROPOFOL INJECTION 50 ML IV ONE ×2 (13:54→14:46)
[2021-01-13] MEDS ORDERED: LACTATED RINGERS 1,000 ML IV STA (14:24)
[2021-01-13] MEDS ORDERED: MAGNESIUM 1 GM/100 ML IVPB 100 ML IV ONE (20:00)
--- NOTE | 2021-01-13 20:37 | Progress Note ---
Subjective Subjective/Events-last exam Patient still having abdominal pain. Otherwise no other complaints this AM. Review of Systems Pulmonary: No Dyspnea, No Cough Cardiovascular: No: Chest Pain, Palpitations Gastrointestinal: Nausea, Abdominal Pain Focused Exam Lactate Level 01/12/21 06:18: Lactic Acid Level 1.16 Objective Exam Last Set of Vital Signs Vital Signs Date Time Temp Pulse Resp B/P (MAP) Pulse Ox O2 Delivery O2 Flow Rate FiO2 01/13/21 19:44 36.3 100 20 143/65 (91) 91 Room Air 01/13/21 16:08 2.00 Capillary Refill : Less Than 3 Seconds I&O Intake and Output 01/13/21 00:00 Intake Total 3050 ml Output Total 800 ml Balance 2250 ml Intake Oral 550 ml IV Total 2500 ml Output Urine Total 800 ml Daily Weight Change Yes, 14-23 lbs General: Alert, Oriented X3, Cooperative, Mild Distress Lungs: Clear to Auscultation, Normal Air Movement Heart: Regular Rate, No Murmurs Abdomen: Normal Bowel Sounds, Other (LLQ ttp, + gaurding) Extremities: No Edema, No Tenderness/Swelling Results/Procedures Lab Laboratory Tests 01/13/21 05:35: White Blood Count 10.8, Red Blood Count 3.60L, Hemoglobin 11.8, Hematocrit 35, Mean Corpuscular Volume 97, Mean Corpuscular Hemoglobin 33, Mean Corpuscular Hemoglobin Concent 34, Red Cell Distribution Width 12.0, Platelet Count 212, Mean Platelet Volume 10.9, Immature Granulocyte % (Auto) 1, Neutrophils (%) (Auto) 77H, Lymphocytes (%) (Auto) 11L, Monocytes (%) (Auto) 10, Eosinophils (%) (Auto) 1, Basophils (%) (Auto) 1, Neutrophils # (Auto) 8.3H, Lymphocytes # (Auto) 1.2, Monocytes # (Auto) 1.1H, Eosinophils # (Auto) 0.1, Basophils # (Auto) 0.1, Immature Granulocyte # (Auto) 0.1, Percent Immature Platelet Fraction 3.2, Sodium Level 132L, Potassium Level 2.7L, Chloride Level 94L, Carbon Dioxide Level 28, Anion Gap 10, Blood Urea Nitrogen 3L, Creatinine 0.55L, Estimat Glomerular Filtration Rate 111, BUN/Creatinine Ratio 5, Glucose Level 101, Calcium Level 9.3, Corrected Calcium 9.6, Magnesium Level 1.4L, Total Bilirubin 0.5, Aspartate Amino Transf (AST/SGOT) 29, Alanine Aminotransferase (ALT/SGPT) 56H, Alkaline Phosphatase 102, Total Protein 6.5, Albumin 3.6 Microbiology 01/12/21 Blood Culture - Preliminary, Resulted No growth Assessment/Plan Assessment/Plan (1) Abdominal distension, gaseous Status: Acute Assessment & Plan: - Asked to consult by Dr Vicente for medical consult, appreciate consult, decompressive colonoscopy this AM (2) Leukocytosis, unspecified Status: Acute Assessment & Plan: - Will treat ppx for colitis with Cipro/flagyl, trend WBCs 01/13: Leukocytosis much improved today, continue antibiotics (3) Elevated LFTs Status: Chronic Assessment & Plan: - Reviewed previous labs from August, recommend outpatient workup 01/13: Improving today (4) Hyponatremia Status: Chronic Assessment & Plan: - Review previous labs August (5) HTN (hypertension) Status: Chronic Assessment & Plan: - Restart home meds, likely uncontrolled 2/2 pain Qualifiers: Qualified Codes: I10 - Essential (primary) hypertension JOYCE PERSAUD MD Jan 13, 2021 20:37
[2021-01-13] MEDS: traZODone 50 MG (DESYREL) TAB PO SCH (21:10)
--- NOTE | 2021-01-13 22:48 | Diagnostic Imaging Report ---
INDICATION: Post decompression and endoscopy, pain. COMPARISON: Imaging from the same date. TECHNIQUE: Two radiographs of the abdomen dated January 13, 2021. FINDINGS: Calcification overlying the left lung base is present. Otherwise, the visualized lung bases appear clear. Gas is identified throughout scattered loops of bowel, including the colon. Small bowel gas has increased since the prior exam while colonic gas has decreased since the prior exam. Previously noted focal loop of dilated gas-filled bowel within the right abdomen appears less prominent than the prior exam, measuring up to 8.8 cm and previously was 10.8 cm. No free air. Vascular stents are again seen within the pelvis, bilaterally, as well as within the abdomen on the left. Chronic healing left superior and inferior pubic rami fractures. Scattered osseous degenerative changes without acute osseous abnormality. Background vascular calcifications. IMPRESSION: 1. Interval improvement of focally gas dilated loop of bowel within the right abdomen without free air. 2. No increasing dilatation of the bowel with gas identified throughout the large and small bowel. 3. Additional stable findings as above. Dictated by: Dictated on workstation # [id number]
--- NOTE | 2021-01-14 00:46 | OPERATIVE REPORT ---
DATE OF SERVICE: 01/13/2021 PREOPERATIVE DIAGNOSES: Colonic distention, right-sided abdominal pain. POSTOPERATIVE DIAGNOSES: Questionable ischemic area right colon, colonic distention. PROCEDURE: Decompressive colonoscopy with biopsy of the right-sided colon. INDICATIONS: The patient is a 65-year-old female who has had continued colonic distention and right-sided abdominal pain. She understands risks and benefits of procedure and wished to proceed. Consent was signed in the chart. DESCRIPTION OF PROCEDURE: The patient was taken to the endoscopy suite, placed in left lateral recumbent position. Timeout was performed. A digital rectal exam was performed. No palpable polyps, masses or ulcerations. A pediatric colonoscope was inserted into the rectum and advanced through the rectum into the sigmoid colon, multiple turns present. Scope was unable to get past the sigmoid colon. This was then slowly retracted until completely removed. The gastroscope was then inserted into the rectum and advanced. The patient will be repositioned multiple times until we were able to get into the right colon. There was some stool in the right colon. There were also questionable ischemic changes of the right colon, did not look to be transmural. Biopsy of this area was obtained. Scope was then continued to be slowly retracted back, continuing to suction the air out decompressing the colon. Scope was slowly retracted until completely removed. The patient's abdomen after the decompressive colonoscopy was flat and soft. She was taken back to the recovery room in stable condition. Job ID: [id number] DocumentID: [id number] Dictated Date: 01/13/2021 20:01:56 Pilot Supervisor Date: 01/14/2021 00:45:54 Dictated By: RUMA LOPES DO
[2021-01-14] MEDS: morphine INJ 4 MG/ML 1 ML (VIAL/SYRINGE) IVP PRN (01:09)
[2021-01-14] MEDS: LACTATED RINGERS 1,000 ML IV SCH ×3 (03:37→21:58)
[2021-01-14 04:00] VITALS: BP 155/65
[2021-01-14 05:14] LABS: BASOPHILS # (AUTO) 0.1 10^3/uL (0.0-0.1); BASOPHILS % (AUTO) 1 % (0-10); EOSINOPHILS # (AUTO) 0.2 10^3/uL (0.0-0.3); EOSINOPHILS % (AUTO) 2 % (0-10); HEMATOCRIT 35 % (35-52); HEMOGLOBIN 11.6 g/dL (11.5-16.0); LYMPHOCYTES % (AUTO) 11 % (12-44); MEAN CORPUSCULAR HEMOGLOBIN 33 pg (25-34); MEAN CORPUSCULAR HGB CONC 34 g/dL (32-36); MEAN CORPUSCULAR VOLUME 98 fL (80-99); MONOCYTES # (AUTO) 0.9 10^3/uL (0.0-1.0); MONOCYTES % (AUTO) 9 % (0-12); NEUTROPHILS # (AUTO) 6.9 10^3/uL (1.8-7.8); NEUTROPHILS % (AUTO) 75 % (42-75); PLATELET COUNT 216 10^3/uL (130-400); WHITE BLOOD COUNT 9.1 10^3/uL (4.3-11.0)
[2021-01-14 05:30] LABS: POTASSIUM 2.8 MMOL/L (3.6-5.0)
[2021-01-14 05:36] LABS: CREATININE SERUM 0.57 MG/DL (0.60-1.30)
--- NOTE | 2021-01-14 07:25 | Progress Note - Surgery ---
GRACELETHA 01/14/21 0725: Subjective Date Seen by a Provider: Jan 14, 2021 Time Seen by a Provider: 06:00 Subjective/Events-last exam Pt seems to be resting comfortably and reports feeling a lot better today. Passed flatus 1x last night. No bowel movements yet. Reports minimal fatigue and joint pains. Requests to be in regular diet. On exam, pt abdomen distention has significantly decreased and is soft and nontender in all four quadrants. However, abdominal xray this morning revealed moderate distention of cecum and an increase in diameter compared to yesterday. Review of Systems General: No Chills; Fatigue, Appetite HEENT: No Head Aches, No Visual Changes, No Sore Throat Pulmonary: No Dyspnea, No Cough Cardiovascular: No: Chest Pain, Palpitations, Edema Gastrointestinal: No: Nausea, Vomiting, Diarrhea Genitourinary: No Dysuria, No Frequency, No Incontinence Musculoskeletal: No: neck pain, back pain, leg pain Neurological: No: Weakness, Numbness, Seizures Focused Exam Lactate Level 01/12/21 06:18: Lactic Acid Level 1.16 Objective Exam Vital Signs Date Time Temp Pulse Resp B/P (MAP) Pulse Ox O2 Delivery O2 Flow Rate FiO2 01/14/21 04:00 36.9 99 18 155/65 (95) 95 Nasal Cannula 1.00 01/14/21 01:00 97 01/13/21 23:30 37.4 93 18 145/67 (93) 90 Room Air 01/13/21 21:15 Room Air 01/13/21 19:44 36.3 100 20 143/65 (91) 91 Room Air 01/13/21 19:00 102 01/13/21 16:08 36.2 85 20 169/74 (105) 92 Nasal Cannula 2.00 01/13/21 15:15 89 16 100 Room Air 01/13/21 15:10 66 16 100 OxyMask 10 01/13/21 15:05 66 16 100 OxyMask 10 01/13/21 12:50 81 01/13/21 11:07 36.7 93 18 157/67 (97) 93 Nasal Cannula 2.00 01/13/21 08:00 93 Nasal Cannula 2.00 01/13/21 07:48 93 Nasal Cannula 2.00 I & O 01/14/21 07:00 Intake Total 1765 ml Output Total 3250 ml Balance -1485 ml Capillary Refill : Less Than 3 Seconds General Appearance: No Apparent Distress, WD/WN, Chronically ill HEENT: PERRL/EOMI Neck: Normal Inspection, Non Tender, Supple Respiratory: Chest Non Tender, No Accessory Muscle Use, No Respiratory Distress Cardiovascular: Regular Rate, Rhythm Gastrointestinal: normal bowel sounds, non tender, soft Extremity: Normal Inspection, Non Tender, No Calf Tenderness Neurologic/Psychiatric: Alert, Oriented x3, No Motor/Sensory Deficits, Normal Mood/Affect Skin: Normal Color, Warm/Dry Results Lab Laboratory Tests 01/14/21 04:55: White Blood Count 9.1, Red Blood Count 3.52L, Hemoglobin 11.6, Hematocrit 35, Mean Corpuscular Volume 98, Mean Corpuscular Hemoglobin 33, Mean Corpuscular Hemoglobin Concent 34, Red Cell Distribution Width 11.8, Platelet Count 216, Mean Platelet Volume 10.0, Immature Granulocyte % (Auto) 1, Neutrophils (%) (Auto) 75, Lymphocytes (%) (Auto) 11L, Monocytes (%) (Auto) 9, Eosinophils (%) (Auto) 2, Basophils (%) (Auto) 1, Neutrophils # (Auto) 6.9, Lymphocytes # (Auto) 1.0, Monocytes # (Auto) 0.9, Eosinophils # (Auto) 0.2, Basophils # (Auto) 0.1, Immature Granulocyte # (Auto) 0.1, Sodium Level 133L, Potassium Level 2.8L, Chloride Level 94L, Carbon Dioxide Level 24, Anion Gap 15H, Blood Urea Nitrogen 6L, Creatinine 0.57L, Estimat Glomerular Filtration Rate 107, BUN/Creatinine Ratio 11, Glucose Level 76, Calcium Level 9.0 Microbiology 01/12/21 Blood Culture - Preliminary, Resulted No growth Assessment/Plan Assessment/Plan Assessment/Plan S/P Decompression colonoscopy Abdominal pain right sided Abdominal distention Status post colonoscopy with hot biopsy polypectomies and EGD Leukocytosis Hypokalemia Hypomagnesemia Pt abdomen significantly decreased, soft, and nontender. Reports flatus. However, abdominal xray still shows moderate distention of the cecum and mild increase in diameter compared to yesterday. Due to xray not matching physical exam findings, will remain under observation. Clear liquid diet. Possible colon resection if colon continues to distend more. RUMA VICENTE DO 01/14/212004: Subjective Subjective/Events-last exam Patient feeling a little bit better today. She is passing a little bit of flatus. She is not had any significant abdominal distention today. Patient just feels achy not with pain. She had abdominal x-ray showing some distention of the cecum still. Objective Exam General Appearance: No Apparent Distress, WD/WN HEENT: PERRL/EOMI, Normal ENT Inspection Neck: Normal Inspection, Non Tender Respiratory: Chest Non Tender, No Accessory Muscle Use, No Respiratory Distress Cardiovascular: Regular Rate, Rhythm, No JVD Gastrointestinal: soft, tenderness (Minimal right lower quadrant, nondistended) Extremity: Normal Inspection, Non Tender, No Calf Tenderness Neurologic/Psychiatric: Alert, Oriented x3, No Motor/Sensory Deficits, Normal Mood/Affect Skin: Normal Color, Warm/Dry Lymphatic: No Adenopathy Assessment/Plan Assessment/Plan Assessment/Plan S/P Decompression colonoscopy Abdominal pain right sided Abdominal distention Status post colonoscopy with hot biopsy polypectomies and EGD Leukocytosis Hypokalemia Hypomagnesemia Pt abdomen distention significantly decreased, soft, and nontender. Reports flatus. However, abdominal xray still shows moderate distention of the cecum and mild increase in diameter compared to yesterday. Due to xray not matching physical exam findings. She is passing flatus so I think this will likely begin to resolve will start clear liquid diet. We discussed that if this does not improve would need surgical intervention of removing the right part of the colon. Repeat labs tomorrow, abdominal x-ray in the morning Supervisory-Addendum Brief Verification & Attestation Participated in pt care: history, MDM, physical Personally performed: exam, history, MDM, supervision of care Care discussed with: Medical Student Procedures: n/a Results interpretation: Verified all documentation Verification and Attestation of Medical Student E/M Service A medical student performed and documented this service in my presence. I revie wed and verified all information documented by the medical student and made modifications to such information, when appropriate. I personally performed the physical exam and medical decision making. Ruma Viecnte, Jan 14, 2021,20:06 LETHA EDWARDS Jan 14, 2021 07:25 RUMA VICENTE DO Jan 14, 2021 20:05
[2021-01-14 07:36] VITALS: BP 151/67
[2021-01-14] MEDS: UMECLIDINIUM BROMIDE (INCRUSE ELLIPTA) 7'S IH SCH (07:38)
--- NOTE | 2021-01-14 08:49 | Diagnostic Imaging Report ---
INDICATION: Abdominal pain Abdominal film obtained in the supine projection compared to yesterday There is no overt obstruction. There is moderate distention of the cecum which measured about 9 cm. Remaining bowel loops are nondistended. There are vascular calcifications noted. IMPRESSION: Moderate distention of the cecum is noted, the remaining bowel gas pattern is unremarkable. Suggest followup as clinically warranted. There has been a mild increase in diameter of the cecum compared to yesterday. Dictated by: Dictated on workstation # [id number]
[2021-01-14] MEDS ORDERED: ACETAMINOPHEN 325 MG TABLET ONE (10:31)
[2021-01-14] MEDS: SIMETHICONE 80 MG (MYLICON) CHEW PO SCH ×4 (10:36→21:58)
[2021-01-14] MEDS: CIPROFLOXACIN 500 MG (CIPRO) TABLET PO SCH ×2 (10:36→21:20)
[2021-01-14] MEDS: amLODIPine 10 MG (NORVASC) TAB PO SCH (10:36)
[2021-01-14] MEDS: LOSARTAN 100 MG (COZAAR) TABLET PO SCH (10:36)
[2021-01-14] MEDS: metroNIDAZOLE 500 MG (FLAGYL) TAB PO SCH ×2 (10:36→21:20)
[2021-01-14] MEDS: KCL 10 MEQ TAB (MICRO K) PO SCH ×2 (10:37→21:20)
[2021-01-14] MEDS: AtorvaSTATin TABLET 10 MG TABLET PO SCH (10:37)
[2021-01-14] MEDS: PANTOPRAZOLE 40 MG (PROTONIX) TAB PO SCH (10:37)
[2021-01-14] MEDS: ACETAMINOPHEN 325 MG TABLET PO PRN ×2 (10:40→19:58)
[2021-01-14 11:55] VITALS: BP 154/94
[2021-01-14 14:53] VITALS: BP 139/66
[2021-01-14 19:40] VITALS: BP 179/77
[2021-01-14] MEDS: traZODone 50 MG (DESYREL) TAB PO SCH (21:20)
[2021-01-14] MEDS ORDERED: cloNIDine 0.1 MG (CATAPRES) TAB PO PRN (21:45)
[2021-01-14] MEDS ORDERED: amLODIPine 5 MG (NORVASC) TAB PO ONE (21:45)
[2021-01-14 23:17] VITALS: BP 149/68
[2021-01-15] MEDS: ACETAMINOPHEN 325 MG TABLET PO PRN ×2 (02:12→09:29)
[2021-01-15 04:00] VITALS: BP 155/70
[2021-01-15 05:39] LABS: BASOPHILS # (AUTO) 0.1 10^3/uL (0.0-0.1); BASOPHILS % (AUTO) 1 % (0-10); EOSINOPHILS # (AUTO) 0.2 10^3/uL (0.0-0.3); EOSINOPHILS % (AUTO) 3 % (0-10); HEMATOCRIT 36 % (35-52); HEMOGLOBIN 12.5 g/dL (11.5-16.0); LYMPHOCYTES # (AUTO) 0.9 10^3/uL (1.0-4.0); LYMPHOCYTES % (AUTO) 12 % (12-44); MEAN CORPUSCULAR HEMOGLOBIN 33 pg (25-34); MEAN CORPUSCULAR HGB CONC 34 g/dL (32-36); MEAN CORPUSCULAR VOLUME 96 fL (80-99); MEAN PLATELET VOLUME 10.3 fL (9.0-12.2); MONOCYTES # (AUTO) 0.9 10^3/uL (0.0-1.0); MONOCYTES % (AUTO) 12 % (0-12); NEUTROPHILS # (AUTO) 5.2 10^3/uL (1.8-7.8); NEUTROPHILS % (AUTO) 71 % (42-75); PLATELET COUNT 256 10^3/uL (130-400); WHITE BLOOD COUNT 7.2 10^3/uL (4.3-11.0)
[2021-01-15 05:54] LABS: ALBUMIN 3.5 GM/DL (3.2-4.5)
[2021-01-15 05:55] LABS: CALCIUM 8.7 MG/DL (8.5-10.1)
[2021-01-15 05:56] LABS: TOTAL PROTEIN 6.3 GM/DL (6.4-8.2)
[2021-01-15 05:58] LABS: BILIRUBIN,TOTAL 0.4 MG/DL (0.1-1.0); POTASSIUM 2.5 MMOL/L (3.6-5.0)
[2021-01-15 06:00] LABS: CREATININE SERUM 0.54 MG/DL (0.60-1.30)
[2021-01-15] MEDS: UMECLIDINIUM BROMIDE (INCRUSE ELLIPTA) 7'S IH SCH (07:03)
--- NOTE | 2021-01-15 07:40 | Progress Note - Hospitalist ---
Subjective HPI/CC On Admission Date Seen by Provider: Jan 15, 2021 Time Seen by Provider: 10:00 Subjective/Events-last exam See discharge summary Objective Exam Vital Signs Vital Signs Date Time Temp Pulse Resp B/P (MAP) Pulse Ox O2 Delivery O2 Flow Rate FiO2 01/15/21 18:26 36.2 102 18 138/62 95 Room Air 1.00 Capillary Refill : Less Than 3 Seconds General Appearance: No Apparent Distress, WD/WN, Chronically ill Results/Procedures Lab Laboratory Tests 01/15/21 05:02 Patient resulted labs reviewed. Assessment/Plan Assessment and Plan Assess & Plan/Chief Complaint Assessment: S/P Decompression colonoscopy Abdominal pain right sided Abdominal distention Status post colonoscopy with hot biopsy polypectomies and EGD Leukocytosis Hypokalemia Hypomagnesemia Plan: Insisting on discharge Potassium supplement KALPANA BASHIR DO Jan 15, 2021 07:40
[2021-01-15 08:00] VITALS: BP 130/65
[2021-01-15] MEDS: LOSARTAN 100 MG (COZAAR) TABLET PO SCH (08:26)
[2021-01-15] MEDS: SIMETHICONE 80 MG (MYLICON) CHEW PO SCH ×2 (08:27→15:07)
[2021-01-15] MEDS: KCL 10 MEQ TAB (MICRO K) PO SCH (08:27)
[2021-01-15] MEDS: amLODIPine 10 MG (NORVASC) TAB PO SCH (08:27)
[2021-01-15] MEDS: PANTOPRAZOLE 40 MG (PROTONIX) TAB PO SCH (08:27)
[2021-01-15] MEDS: AtorvaSTATin TABLET 10 MG TABLET PO SCH (08:27)
[2021-01-15] MEDS: metroNIDAZOLE 500 MG (FLAGYL) TAB PO SCH (08:27)
[2021-01-15] MEDS: POTASSIUM CL 10MEQ/50ML IVPB 50 ML IV SCH ×4 (08:28→11:37)
[2021-01-15] MEDS: MAGNESIUM 1 GM/100 ML IVPB 100 ML IV SCH ×2 (08:28→09:32)
[2021-01-15] MEDS: ASPIRIN E.C. 81 MG (ECOTRIN) TAB PO SCH (09:05)
[2021-01-15] MEDS: CLOPIDOGREL 75 MG (PLAVIX) TABLET PO SCH (09:06)
--- NOTE | 2021-01-15 09:32 | Diagnostic Imaging Report ---
EXAMINATION: Abdominal radiographs, single view. DATE: January 15, 2021. CLINICAL INDICATION: 65-year-old female, abdominal pain. COMPARISON: January 14, 2021. COMMENTS: There is a dilated gas-filled segments of bowel in the right abdomen measuring up to 10.6 cm in diameter which is increasingly distended since the comparison exam. There are additional mildly distended segments of colon measuring up to roughly 4.9 cm in diameter which is similar to the prior study. There is no identified pneumatosis or portal venous gas. There is no identified free intraperitoneal air. There are atherosclerotic calcifications noted. IMPRESSION: 1. Abnormally dilated segments of bowel in the right lower quadrant measuring up to 10.6 cm in diameter which is increasingly distended since the comparison exam. There is additional more mild colonic distention. The degree of bowel distention of the cecum in the right lower quadrant does increase risk for possible perforation. Dictated by: Dictated on workstation # [id number]
--- NOTE | 2021-01-15 11:02 | Progress Note ---
Subjective Date Seen by a Provider: Jan 15, 2021 Time Seen by a Provider: 10:10 Subjective/Events-last exam Patient seen with Dr. Cruz. Patient reports doing well and just wants to go home. Denies any abdominal pain. Reports passing lots of flatus but denies any BM. Tolerating clear liquid diet. Objective Exam Vital Signs Date Time Temp Pulse Resp B/P (MAP) Pulse Ox O2 Delivery O2 Flow Rate FiO2 01/15/21 08:00 36.9 73 20 130/65 (86) 93 Room Air 01/15/21 07:04 93 Room Air 01/15/21 07:00 91 01/15/21 04:00 37.6 89 18 155/70 (98) 91 Room Air 01/15/21 01:00 80 01/14/21 23:17 36.8 84 18 149/68 (95) 90 Room Air 01/14/21 20:00 Room Air 01/14/21 19:40 37.0 89 18 179/77 (111) 90 Room Air 01/14/21 19:00 80 01/14/21 14:53 37.0 87 18 139/66 (90) 91 Room Air 01/14/21 12:55 88 01/14/21 11:55 36.7 94 18 154/94 (114) 93 Room Air l I & O 01/15/21 07:00 Intake Total 1060 ml Output Total 900 ml Balance 160 ml Capillary Refill : Less Than 3 Seconds General Appearance: No Apparent Distress, WD/WN Neck: Normal Inspection, Non Tender Respiratory: No Accessory Muscle Use, No Respiratory Distress Cardiovascular: Regular Rate, Rhythm, No Edema Gastrointestinal: normal bowel sounds, non tender, soft Extremity: Normal Inspection, Normal Range of Motion Neurologic/Psychiatric: Alert, Oriented x3 Skin: Normal Color, Warm/Dry Results Lab Laboratory Tests 01/15/21 05:02: White Blood Count 7.2, Red Blood Count 3.78L, Hemoglobin 12.5, Hematocrit 36, Mean Corpuscular Volume 96, Mean Corpuscular Hemoglobin 33, Mean Corpuscular Hemoglobin Concent 34, Red Cell Distribution Width 11.7, Platelet Count 256, Mean Platelet Volume 10.3, Immature Granulocyte % (Auto) 1, Neutrophils (%) (Auto) 71, Lymphocytes (%) (Auto) 12, Monocytes (%) (Auto) 12, Eosinophils (%) (Auto) 3, Basophils (%) (Auto) 1, Neutrophils # (Auto) 5.2, Lymphocytes # (Auto) 0.9L, Monocytes # (Auto) 0.9, Eosinophils # (Auto) 0.2, Basophils # (Auto) 0.1, Immature Granulocyte # (Auto) 0.0, Sodium Level 134L, Potassium Level 2.5*L, Chloride Level 93L, Carbon Dioxide Level 26, Anion Gap 15H, Blood Urea Nitrogen 5L, Creatinine 0.54L, Estimat Glomerular Filtration Rate 114, BUN/Creatinine Ratio 9, Glucose Level 96, Calcium Level 8.7, Corrected Calcium 9.1, Magnesium Level 1.3L, Total Bilirubin 0.4, Aspartate Amino Transf (AST/SGOT) 38H, Alanine Aminotransferase (ALT/SGPT) 53, Alkaline Phosphatase 97, Total Protein 6.3L, Albumin 3.5 Microbiology 01/12/21 Blood Culture - Preliminary, Resulted No growth Assessment/Plan Assessment/Plan Assess & Plan/Chief Complaint 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 Reports flatus. However, abdominal xray still shows moderate distention of the cecum and increase in diameter at 10.6 cm. Due to xray not matching physical exam findings, will remain under observation. Clear liquid diet. Possible colon resection if colon continues to distend more. [employer]IT [employer] Jan 15, 2021 11:02
[2021-01-15] MEDS: LACTATED RINGERS 1,000 ML IV SCH (11:37)
[2021-01-15] MEDS: CIPROFLOXACIN 500 MG (CIPRO) TABLET PO SCH (11:37)
[2021-01-15] MEDS ORDERED: HYDROcodone/APAP 5 MG/325 MG (LORTAB) TAB PO PRN (11:45)
[2021-01-15 12:00] VITALS: BP 145/74
[2021-01-15] MEDS ORDERED: NICOTINE 21 MG (NICODERM) PATCH TD SCH (12:00)
[2021-01-15] MEDS ORDERED: ACETAMINOPHEN 325 MG TABLET PO PRN (12:15)
--- NOTE | 2021-01-15 14:31 | Diagnostic Imaging Report ---
EXAMINATION: Abdominal radiographs, single view. DATE: January 15, 2021 at 1306 hours. CLINICAL INDICATION: 65-year-old female, follow-up abdominal distention. COMPARISON: January 15, 2021 at 0240 hours. COMMENTS: There is redemonstrated abnormal distention of bowel with the cecum currently measuring 9.0 cm in diameter. There is no identified free intracranial air, pneumatosis, or portal venous gas on supine assessment. There are vascular calcifications. There is no distinct gas. There are subacute to chronic appearing fracture deformities of the left superior and inferior pubic rami. IMPRESSION: 1. Redemonstrated abnormal bowel distention with the cecum currently measuring 9.1 cm in diameter. This is less distended compared to the comparison study. Dictated by: Dictated on workstation # [id number]
--- NOTE | 2021-01-15 15:49 | Discharge Inst-Surgical ---
D/C Lap Instructions-MARTINA Follow Up Dr. Vicente 1 week Activity as tolerated low residue diet next 7 days. Avoid Alcohol, Caffeine, Spicy [place] and Acid foods. Drink 64 fluid oz or more of fluids per day. Symptoms to Report: Fever over 101 degree F, Nausea/Vomiting If any problems/questions: Contact your physician or go to Emergency Room JOSI MACK MD Jan 15, 2021 15:49
[2021-01-15 16:00] VITALS: BP 138/62
[2021-01-15 18:26] VITALS: BP 138/62
--- NOTE | 2021-01-15 21:08 | Discharge Summary ---
Discharge Summary Hospital Course Was the Problem List Reviewed?: Yes Problems/Dx: (1) Abdominal distension, gaseous Status: Acute (2) Diffuse abdominal pain Status: Acute (3) Hyponatremia Status: Chronic (4) Elevated LFTs Status: Chronic (5) HTN (hypertension) Status: Chronic Qualifiers: Qualified Codes: I10 - Essential (primary) hypertension (6) Dilatation of colon Status: Acute (7) Leukocytosis, unspecified Status: Acute (8) Iron deficiency anemia Hospital Course Date of Admission: Jan 13, 2021 at 07:38 Admission Diagnosis : Family Physician/Provider: Keven Santo MD Date of Discharge: 01/15/21 Discharge Diagnosis: Assessment: S/P Decompression colonoscopy Abdominal pain right sided Abdominal distention Status post colonoscopy with hot biopsy polypectomies and EGD Leukocytosis Hypokalemia Hypomagnesemia Plan: Insisting on discharge Potassium supplement Hospital Course: 3-day hospital course after she was admitted for abdominal pain with distention status post decompression x2. Patient was found to be hypokalemic aggressive supplement initiated patient was insistent on going home she felt fine even though she had not had a bowel movement she was discharged in stable condition Labs and Pending Lab Test: Laboratory Tests 01/15/21 05:02: White Blood Count 7.2, Red Blood Count 3.78L, Hemoglobin 12.5, Hematocrit 36, Mean Corpuscular Volume 96, Mean Corpuscular Hemoglobin 33, Mean Corpuscular Hemoglobin Concent 34, Red Cell Distribution Width 11.7, Platelet Count 256, Mean Platelet Volume 10.3, Immature Granulocyte % (Auto) 1, Neutrophils (%) (Auto) 71, Lymphocytes (%) (Auto) 12, Monocytes (%) (Auto) 12, Eosinophils (%) (Auto) 3, Basophils (%) (Auto) 1, Neutrophils # (Auto) 5.2, Lymphocytes # (Auto) 0.9L, Monocytes # (Auto) 0.9, Eosinophils # (Auto) 0.2, Basophils # (Auto) 0.1, Immature Granulocyte # (Auto) 0.0, Sodium Level 134L, Potassium Level 2.5*L, Chloride Level 93L, Carbon Dioxide Level 26, Anion Gap 15H, Blood Urea Nitrogen 5L, Creatinine 0.54L, Estimat Glomerular Filtration Rate 114, BUN/Creatinine Rat io 9, Glucose Level 96, Calcium Level 8.7, Corrected Calcium 9.1, Magnesium Level 1.3L, Total Bilirubin 0.4, Aspartate Amino Transf (AST/SGOT) 38H, Alanine Aminotransferase (ALT/SGPT) 53, Alkaline Phosphatase 97, Total Protein 6.3L, Albumin 3.5 Microbiology 01/12/21 Blood Culture - Preliminary, Resulted No growth Home Meds Active Reported Tylenol Extra Strength (Acetaminophen) 500 Mg Tablet 1,000 Mg PO Q8H PRN Clopidogrel (Clopidogrel Bisulfate) 75 Mg Tablet 75 Mg PO DAILY LAST FILLED 08-01-2020 #90/90 DAY SUPPLY Aspirin EC (Aspirin) 81 Mg Tablet.dr 81 Mg PO DAILY Omeprazole 40 Mg Capsule.dr 40 Mg PO DAILY Alendronate Sodium 70 Mg Tablet 70 Mg PO SAT Amlodipine Besylate 10 Mg Tablet 10 Mg PO DAILY Trazodone HCl 50 Mg Tablet 50 Mg PO HS Spiriva (Tiotropium [place]) 1 Inh Aerp 1 Inh IH BID Iron (Ferrous Sulfate) 325 Mg Tablet 325 Mg PO BID Potassium Chloride 10 Meq Capsule.er 10 Meq PO BID Atorvastatin Calcium 10 Mg Tablet 10 Mg PO DAILY Losartan-Hctz 100-12.5 mg Tab (Losartan/Hydrochlorothiazide) 1 Each Tablet 1 Each PO DAILY Proair Hfa (Albuterol Sulfate) 1 Puff Puff 2 Puff IH Q4H PRN Multi-Vitamin Daily (Multivitamin) 1 Each Tablet 1 Each PO DAILY Assessment/Pt Instructions [facility] in 1 week Discharge Planning: <30 minutes discharge planning Discharge Instructions Discharge Diet: Liquid Diet Activity as Tolerated: Yes Discharge Physical Examination Vital Signs Vital Signs Date Time Temp Pulse Resp B/P (MAP) Pulse Ox O2 Delivery O2 Flow Rate FiO2 01/15/21 18:26 36.2 102 18 138/62 95 Room Air 1.00 Allergies: Coded Allergies: sulfamethoxazole (Verified Allergy, Mild, Nausea, 01/12/21) trimethoprim (Verified Allergy, Mild, Nausea, 01/12/21) Discharge Summary Date of Admission Jan 13, 2021 at 07:38 Date of Discharge Jan 15, 2021 at 18:26 Discharge Date: Jan 15, 2021 Discharge Diagnosis Assessment: S/P Decompression colonoscopy Abdominal pain right sided Abdominal distention Status post colonoscopy with hot biopsy polypectomies and EGD Leukocytosis Hypokalemia Hypomagnesemia Plan: Insisting on discharge Potassium supplement KALPANA BASHIR DO Jan 15, 2021 21:08
[2021-01-16] MEDS ORDERED: PATCH REMOVAL TP SCH (09:00)
== END 2021-01-15 18:26 | disposition home or self-care (01) | DRG 345 ==
LOC: EDUNIT# 05:14 → ER FS 05:16 → 4TH 08:48 → OBSVTOIN 01-13 07:38
PROVIDERS: ADMIT Surgery; ATTEND Surgery
PROC: 0D9E8ZZ Drainage of Large Intestine, Via Natural or Artificial Opening Endoscopic (ICD-10-PCS; principal; 2021-01-12 10:27)
PROC: 0DBF8ZX Excision of Right Large Intestine, Via Natural or Artificial Opening Endoscopic, Diagnostic (ICD-10-PCS; 2021-01-14)
PROC: 0D9 Gastrointestinal System, Drainage (ICD-10-PCS; 2021-01-14)
DX: K59.81 Ogilvie syndrome (principal); E87.1 Hypo-osmolality and hyponatremia; I10 Essential (primary) hypertension; R74.01 Elevation of levels of liver transaminase levels; Z79.82 Long term (current) use of aspirin; Z79.899 Other long term (current) drug therapy; D72.829 Elevated white blood cell count, unspecified; J44.9 Chronic obstructive pulmonary disease, unspecified; E78.00 Pure hypercholesterolemia, unspecified; F17.210 Nicotine dependence, cigarettes, uncomplicated; Z90.49 Acquired absence of other specified parts of digestive tract; R79.89 Other specified abnormal findings of blood chemistry; E87.6 Hypokalemia; E83.42 Hypomagnesemia; K63.89 Other specified diseases of intestine
CPT/HCPCS: 36415; 74018; 74019; 74176; 80048; 80053; 81000; 83605; 83690; 83735; 85007; 85025; 85027; 87040; 94640; 94760

== ENCOUNTER 2021-04-15 10:43 | Outpatient (RCR) | payer BC, OTHER ==
[2021-01-21 13:43] LABS: BASOPHILS # (AUTO) 0.2 10^3/uL (0.0-0.1); BASOPHILS % (AUTO) 2 % (0-10); EOSINOPHILS # (AUTO) 0.2 10^3/uL (0.0-0.3); EOSINOPHILS % (AUTO) 2 % (0-10); HEMATOCRIT 40 % (35-52); HEMOGLOBIN 13.4 g/dL (11.5-16.0); LYMPHOCYTES % (AUTO) 19 % (12-44); MEAN CORPUSCULAR HEMOGLOBIN 32 pg (25-34); MEAN CORPUSCULAR HGB CONC 33 g/dL (32-36); MEAN CORPUSCULAR VOLUME 96 fL (80-99); MEAN PLATELET VOLUME 9.6 fL (9.0-12.2); MONOCYTES # (AUTO) 1.1 10^3/uL (0.0-1.0); MONOCYTES % (AUTO) 10 % (0-12); NEUTROPHILS # (AUTO) 7.1 10^3/uL (1.8-7.8); NEUTROPHILS % (AUTO) 68 % (42-75); PLATELET COUNT 363 10^3/uL (130-400); WHITE BLOOD COUNT 10.5 10^3/uL (4.3-11.0)
[2021-01-21 13:59] LABS: ALBUMIN 4.1 GM/DL (3.2-4.5); BILIRUBIN,TOTAL 0.3 MG/DL (0.1-1.0); CALCIUM 9.6 MG/DL (8.5-10.1); CREATININE SERUM 0.66 MG/DL (0.60-1.30); POTASSIUM 4.1 MMOL/L (3.6-5.0); TOTAL PROTEIN 7.1 GM/DL (6.4-8.2)
[~2021-04-15 10:43] MED LIST changes: +ACET-2267 PO; +ASPI-1238 PO; +CLOP75TA28 PO
[2021-04-15 10:58] LABS: BASOPHILS # (AUTO) 0.1 10^3/uL (0.0-0.1); BASOPHILS % (AUTO) 1 % (0-10); EOSINOPHILS # (AUTO) 0.1 10^3/uL (0.0-0.3); EOSINOPHILS % (AUTO) 1 % (0-10); HEMATOCRIT 33 % (35-52); HEMOGLOBIN 11.3 g/dL (11.5-16.0); LYMPHOCYTES # (AUTO) 1.6 10^3/uL (1.0-4.0); LYMPHOCYTES % (AUTO) 15 % (12-44); MEAN CORPUSCULAR HEMOGLOBIN 32 pg (25-34); MEAN CORPUSCULAR HGB CONC 34 g/dL (32-36); MEAN CORPUSCULAR VOLUME 94 fL (80-99); MEAN PLATELET VOLUME 9.3 fL (9.0-12.2); MONOCYTES # (AUTO) 1.1 10^3/uL (0.0-1.0); MONOCYTES % (AUTO) 10 % (0-12); NEUTROPHILS # (AUTO) 7.9 10^3/uL (1.8-7.8); NEUTROPHILS % (AUTO) 73 % (42-75); PLATELET COUNT 357 10^3/uL (130-400); WHITE BLOOD COUNT 10.9 10^3/uL (4.3-11.0)
[2021-04-15 11:15] LABS: BILIRUBIN,TOTAL 0.2 MG/DL (0.1-1.0); CALCIUM 9.5 MG/DL (8.5-10.1); CREATININE SERUM 0.76 MG/DL (0.60-1.30); POTASSIUM 4.2 MMOL/L (3.6-5.0); TOTAL PROTEIN 6.5 GM/DL (6.4-8.2)
== END 2021-04-21 | disposition home or self-care (01) ==
LOC: ONC 10:43
PROVIDERS: ATTEND Internal Medicine Hematology & Oncology
DX: D50.0 Iron deficiency anemia secondary to blood loss (chronic) (principal); I73.9 Peripheral vascular disease, unspecified; I10 Essential (primary) hypertension; E78.2 Mixed hyperlipidemia; Z87.891 Personal history of nicotine dependence
CPT/HCPCS: 80053; 82728; 83540; 83550; 85025; G0463; 99213

== ENCOUNTER 2021-05-03 10:43 | Outpatient (RCR) | payer MEDICARE, OTHER ==
[~2021-05-03 10:43] MED LIST changes: +FERRIC CARBOXYMALTOSE (CANCER) 750 MG in NS (IVPB) CANCER CENTER 250 ML IV SCH
== END 2021-05-13 | disposition home or self-care (01) ==
LOC: ONC 10:43
PROVIDERS: ATTEND Internal Medicine Hematology & Oncology
DX: D50.0 Iron deficiency anemia secondary to blood loss (chronic) (principal); I73.9 Peripheral vascular disease, unspecified; I10 Essential (primary) hypertension; E78.2 Mixed hyperlipidemia; K63.5 Polyp of colon; Z72.0 Tobacco use
CPT/HCPCS: 96365

== ENCOUNTER → 2021-11-02 | Outpatient (CLI) | payer MEDICARE, MEDICAID ==
[~2021-11-02] MED LIST changes: +ACLI400A2 IH; -ACLI400A3 IH; -FERRIC CARBOXYMALTOSE (CANCER) 750 MG in NS (IVPB) CANCER CENTER 250 ML IV SCH
[2021-11-02 13:10] LABS: BILIRUBIN,TOTAL 0.5 MG/DL (0.1-1.0); CALCIUM 9.7 MG/DL (8.5-10.1); CREATININE SERUM 0.59 MG/DL (0.60-1.30)
[2021-11-02 13:11] LABS: ALBUMIN 4.5 GM/DL (3.2-4.5); TOTAL PROTEIN 7.4 GM/DL (6.4-8.2)
== END ==
LOC: LAB FS 12:32
PROVIDERS: ATTEND Orthopaedic Surgery
DX: Z01.812 Encounter for preprocedural laboratory examination (principal)
CPT/HCPCS: 36415; 80053

== ENCOUNTER → 2022-02-20 | Outpatient (CLI) | payer MEDICARE, MEDICAID ==
[~2022-02-20] MED LIST changes: +CATHETER FLUSH 10 ML SYR IV PRN; +HOLD METFORMIN - RECEIVED CONTRAST 20 ML VIAL IV SCH; +IOHEXOL 350 MG/ML 100 ML (OMNIPAQUE 350) VIAL IV ONE; +NS 100 ML (IVPB) BAG IV ONE
[2022-02-20 13:08] LABS: CREATININE SERUM 0.55 MG/DL (0.60-1.30)
--- NOTE | 2022-02-20 14:25 | Diagnostic Imaging Report ---
Indication: Carotid stenosis Post IV contrast and CT angiogram neck performed with 2-D and 3-D reconstructions. I have no relevant comparison. Findings: There Is conventional branching of the partially visualized aortic arch. Visualized pulmonary apices showed some heterogeneous air trapping and likely centrilobular emphysematous changes. There are a few scattered non-stenosing calcified plaques in the cervical vertebral arteries which were widely patent and codominant. The intradural segments were patent. The basilar and proximal P1 segments patent. There is mixed soft and hard plaque at the distal common carotids, the bulbs and bifurcations greater left than right. On the left mixed soft and hard plaque extends into the proximal left ICA which has a hemodynamically significant degree of stenosis of at least 80%. Stenotic segment is about 1 cm in length. More scattered and diffuse right carotid bulb and proximal ICA calcified plaques result in 20% or less stenosis. The mid to distal cervical internal carotids widely patent. The intracranial ICAs showed moderate diffuse calcified plaque throughout their cavernous segments without focal stenosis, the A1 segments, the A-COM, the proximal anterior and middle cerebral arteries appeared unremarkable. Impression: 1. Hemodynamically significant stenosis, soft greater than hard plaque proximal left ICA at its origin over a 1 cm length. 2. More moderate plaque non-stenosing right carotid with mild non-stenosing plaques in the vertebral arteries. Dictated by: Dictated on workstation # [id number]
== END ==
LOC: RAD FS 12:39
PROVIDERS: ATTEND Physician Assistant
DX: I65.29 Occlusion and stenosis of unspecified carotid artery (principal)
CPT/HCPCS: 36415; 70498; 82565; 84520; Q9967